=== PATIENT | male | born 1950 | race Caucasian/White ===

== ENCOUNTER 2017-01-07 19:47 | Inpatient (IN) | payer MEDICARE ==
[~2017-01-07] VITALS: Ht 175.3 cm; Wt 112.3 kg
[2017-01-07] VITALS (7 sets, daily range): BP systolic 124–153; BP diastolic 67–115; PULSE 87–122; RESP 16–24; O2SAT 94–99
[~2017-01-07 19:47] MED LIST: ASPI-973 PO; ATOR40TA69 PO; CITA40TA13 PO; DILT30TA30 PO; DOXA1TAB PO; FUR20 PO; GARL1CAP7 PO; LEVA15HF5 IH; LOSA50TA3 PO; MULT-1018 PO; OMEG300C3 PO; OXYM30SP18 NS; WARF5TAB7 PO; WARF7.5T4 PO
[2017-01-07 20:08] LABS: BASOPHILS % (AUTO) 0.4 % (0-3); EOSINOPHILS % (AUTO) 1.9 % (0-5); MONOCYTES % (AUTO) 12.1 % (4-12); Mean Corpuscular Hemoglobin 29.7 pg (27.0-35.0); NEUTROPHILS % (AUTO) 66.5 % (40-74); Platelet Count 195 bil/L (150-400)
--- NOTE | 2017-01-07 20:10 | DRSVH ---
PROCEDURE: X-RAY CHEST ONE VIEW, PORTABLE ([id number]) INDICATIONS: sob TECHNIQUE: One view of the chest was acquired. COMPARISON: [facility], CR, XR CHEST 2VW, 10/09/2015, 3:03. FINDINGS: Surgical changes and devices: None. Lungs and pleura: No pleural effusions or pneumothorax. Increased pulmonary vascularity is present. Mediastinum: Mediastinal contours appear normal. Heart size is mildly enlarged. Bones and chest wall: No suspicious bony lesions. Overlying soft tissues appear unremarkable. IMPRESSION: Cardiomegaly with increased pulmonary vascularity suggestive of mild edema. Dictated by: Harmony Dorado M.D. on 01/07/2017 at 20:08 Approved by: Harmony Dorado M.D. on 01/07/2017 at 20:08
[2017-01-07 20:44] LABS: TROPONIN T < 0.010 ug/L (0.0-0.011)
[2017-01-07] MEDS ORDERED: Albuterol-Ipratropium 3 mL Inhalation Solution NEB ONE (20:55)
[2017-01-07] MEDS ORDERED: Diltiazem 5 mg/mL 5 mL Inj IVPUSH ONE (20:55)
[2017-01-07] MEDS ORDERED: Diltiazem Inj 125 MG in 0.9% Sodium Chloride 100 ML, Pharmacy To Mix 1 EA IV SCH (20:55)
[2017-01-07 21:04] LABS: INR 1.76 ratio
--- NOTE | 2017-01-07 21:12 | ED.REPORT ---
HPI-Chest Pain 40 and Over Date of Service Jan 07, 2017 ED Provider: Eric Rock DO The patient is a 66 year old male w/ a hx of chronic a-fib on warfarin, CHF, and COPD who presents to the ED due to hematochezia since yesterday. He has had 5 or 6 episodes of bright red bowel movements. Associated symptoms include SOB, tachycardia and LE edema. He has a GI bleed that was diagnosed outpatient and is to see endoscopy in a few days. He denies fever, vomiting and diarrhea. Nursing Notes Stated Complaint: HEART PROBLEMS,DIFFICULTY BREATHING Chief Complaint: Respiratory Distress Nursing Notes Reviewed: Yes Allergies: Coded Allergies: No Known Allergies (Unverified , 10/09/15) Scheduled Aspirin (Aspirin) 81 Mg Tablet 81 MG PO DAILY Atorvastatin Calcium (Atorvastatin Calcium) 40 Mg Tablet 40 MG PO HS Citalopram (Citalopram) 40 Mg Tablet 40 MG PO DAILY Diltiazem (Cardizem) 30 Mg Tablet 30 MG PO Q8 Doxazosin (Cardura) 1 Mg Tablet 1 MG PO HS Furosemide (Furosemide) 20 Mg Tab 20 MG PO DAILY Garlic (Garlic) 1 Each Capsule 1 EACH PO HS Losartan Potassium (Cozaar) 50 Mg Tablet 50 MG PO DAILY Multivitamin (Multi Vitamin Daily) 1 Each Tablet 1 EACH PO DAILY [place]-3 Fatty Acids (Fish Oil) 300 Mg Capsule 300 MG PO HS Warfarin Sodium (Warfarin Sodium) 5 Mg Tablet 5 MG PO DAILY Take 5mg Mon, , Wed, Sun, Sat, Sun Warfarin Sodium (Warfarin Sodium) 7.5 Mg Tablet 7.5 MG PO DAILY Take 7.5mg on Scheduled PRN Levalbuterol Tartrate (Xopenex Hfa) 15 Gm Hfa.aer.ad 1 PUFF IH Q4 PRN PRN For Wheezing Oxymetazoline HCl (Nasal [place] Sinus) 30 Ml [place] 30 ML NS BID PRN PRN For Congestion General Time Seen by MD: 20:37 Chief Complaint Other (hematochezia) Hx Obtained From: Patient Arrived By: Walk-in Sudden in Onset?: Yes Onset Occurred: Yesterday Symptom Duration: Since onset Past Medical History Past Medical History Notes: Cardiology: [place] Admit October 2015 shortness of breath, diagnosed with atrial fibrillation, stress test suggestive prior RI, cardiac catheterization was planned but deferred initially secondary to thrombus and atrial appendage, the second time deferred due to elevated INR, and then deferred a third time following communication issue regarding scheduling, and then reportedly lost to follow-up Past Medical History COPD Hx pneumonia Bronchitis CVA 2002 Hypertension Gastric ulcer Smoking History Former Smoker Social History Alcohol Use: "Social" Drug Use: Denies drug use Other Social History: Local resident Ambulatory Status Independent Review of Systems Constitutional: Denies: Fever Respiratory: Reports: Shortness of breath GI: Reports: Bloody/tarry stool, Hematochezia, Denies: Diarrhea, Vomiting Musculoskeletal: Reports: Extremity swelling (LE edema) Complete sys rev & neg: except as marked. Physical Exam Initial Vital Signs Vital Signs (First) Date Time Temp Pulse Resp B/P Pulse Ox O2 Delivery O2 Flow Rate FiO2 01/07/17 19:51 36.4 122 16 142/115 99 Room Air Initial VS: Reviewed Head / Eyes: Atraumatic, Normocephalic, PERRL ENT: Mucous membranes moist Back: No CVA tenderness General/Constitutional: Awake, Alert Distress / Hydration: Positive: Distress mild Appearance / Presentation: Positive: Obese, morbidly Wheezing / Retractions: Positive: Wheezing mild pursed lip breathing distant breath sounds Heart Rate / Rhythm: Positive: Irreg irregular rhythm, Tachycardia Lower Ext Edema: Positive: Bilateral 1+, Pitting pulse defecit Abdomen: Atraumatic, Soft, Non-tender Neck Vascular: Positive: JVD mild Skin: Warm, Dry well perfused Interpretation & Diagnostics Lab Results Interpretation Result Diagram: 01/07/17195601/07/171956 Test 01/07/17 19:48 01/07/17 19:57 Urine Color Yellow (YELLOW) Urine Appearance Hazy (CLEAR,HAZY) Urine pH 5.5 (5.0-8.0) Urine Specific [place] 1.025 (1.003-1.035) Urine Protein 30mg/dL (NEG,TRACE) Urine Glucose (UA) Negativemg/dL (NEGATIVE) Urine Ketones Negativemg/dL (NEGATIVE) Urine Occult Blood Trace (NEGATIVE) Urine Nitrite Negative (NEGATIVE) Urine Bilirubin Negative (NEGATIVE) Urine Urobilinogen Normalmg/dL (NORMAL) Urine Leukocyte Esterase Negative (NEGATIVE) Urine RBC 0-2/hpf (0-2) Urine WBC 0-5/hpf (0-5) Urine Epithelial Cells Occasional/hpf (NONE-MOD) Urine Crystals Oxalic acid crystals (NONE Urine Bacteria Few/hpf (NONE-FEW) Urine Hyaline Casts None/lpf (NONE) Urine Granular Casts None seen (NONE SEEN) Urine Waxy Casts None seen (NONE SEEN) Urine Red Blood Cell Casts None seen (NONE SEEN) Urine White Blood Cell Casts None seen (NONE SEEN) Urine Mucus Present (None Seen) Urine Trichomonas None seen (NONE SEEN) Urine Yeast None (NONE SEEN) Urinalysis Comment Urine Culture Reflexed Not indicated White Blood Count 6.7th/mm3 (3.8-10.1) Red Blood Count 4.27mil/mm3 (4.40-5.80) Mean Corpuscular Volume 92.0fL (81-100) Mean Corpuscular Hemoglobin 29.7pg (27.0-35.0) Mean Corpuscular Hemoglobin Concent 32.3% (32.0-37.0) Red Cell Distribution Width 14.1% (12.3-15.4) Platelet Count 195bil/L (150-400) Neutrophils (%) (Auto) 66.5% (40-74) Lymphocytes (%) (Auto) 18.5% (14-46) Monocytes (%) (Auto) 12.1% (4-12) Eosinophils (%) (Auto) 1.9% (0-5) Basophils (%) (Auto) 0.4% (0-3) Prothrombin Time 19.1sec (8.1-12.5) Prothromb Time International Ratio 1.76ratio Sodium Level 139mEq/L (134-144) Potassium Level 4.3mEq/L (3.5-5.2) Chloride Level 101mEq/L (97-108) Carbon Dioxide Level 24mmol/L (18-29) Blood Urea Nitrogen 27mg/dL (8-27) Creatinine 1.02mg/dL (0.76-1.27) Estimat Glomerular Filtration Rate 78mL/min (>59) Glucose Level 130mg/dL (60-99) Calcium Level 9.7mg/dL (8.5-10.1) Total Bilirubin 0.5mg/dL (0.0-1.2) Aspartate Amino Transf (AST/SGOT) 27U/L (0-50) Alanine Aminotransferase (ALT/SGPT) 29U/L (0-44) Alkaline Phosphatase 72U/L (25-160) Troponin T < 0.010ug/L (0.0-0.011) Pro-B-Type Natriuretic Peptide 2393pg/mL (0-376) Total Protein 7.4g/dL (6.4-8.4) Albumin 4.3g/dL (3.4-5.0) Hold Weiss Top Tube Received (Received) ECG Interpretation Time: 19:53 Interpreted by: ED physician Rhythm / Conduction: Atrial fib with RVR (rate 114) X-Ray Chest Interpretation Chest Xray Interpretation: IMPRESSION: Cardiomegaly with increased pulmonary vascularity suggestive of mild edema. Dictated by: Harmony Dorado M.D. on 01/07/2017 at 20:08 Approved by: Harmony Dorado M.D. on 01/07/2017 at 20:08 View: Portable Interpretation / Wet Read by: Interpret - Radiologist Re-Eval/Medical Decision Med Decision/Clinical Course 66[facility] with atrial fibrillation and rapid ventricular response. He has also had hematochezia for 48 hours. He is found to be tachycardic and have wheezing. He was treated with Cardizem and DuoNeb. Overall he looked well after the treatments. He was hemodynamically stable. His first hemoglobin is reassuring. His INR is 1.7. He will be admitted to the PCU on a Cardizem drip and have serial H&H's and consider gastroenterology consultation. Consultation : Referral / Consult Name: Cris Doe DO Consulted With: Hospitalist Call Returned at: 21:08 Hr Representative: Agrees with eval, Agrees with plan Note: Case discussed. Dr. Doe agrees with plan. Counseled Regarding: Diagnosis, Lab results, Need for admission Discharge & Departure Primary Impression: Atrial fibrillation with rapid ventricular response Additional Impressions: Anticoagulated on warfarin Gastrointestinal bleeding GI bleed type/associated pathology: unspecified gastrointestinal hemorrhage type Qualified Code: K92.2 - Gastrointestinal hemorrhage, unspecified Disposition: ADMITTED TO HOSPITAL Discharge Condition All VS Reviewed: Yes Condition: Stable Referrals: Paul Fitzpatrick MD (PCP) Scribe Attestation Portion of this note were transcribed by Ariana Polanco. IDr. Rock, personally performed the history, physical exam, and medical decision-making: I reviewed and confirmed the accuracy for the information in the transcribed note. Signed by: jael Bang, 01/07/17 0429 copies to: Paul Fitzpatrick MD, Todd P DO Jan 07, 2017 21:12 Ariana Polanco Jan 07, 2017 21:20
[2017-01-07] MEDS ORDERED: LidocaineVisc 2%:Antacid 1:1 10 mL Syringe PO SCH (21:25)
[2017-01-07] MEDS ORDERED: Polyethylene Glycol (PEG) 17 Gm Powder PO PRN (22:05)
[2017-01-07] MEDS ORDERED: Alum-Mag Hydrox-Simeth 30 mL Suspension PO PRN (22:05)
[2017-01-07] MEDS ORDERED: Ondansetron 2 mg/mL 2 mL Inj IVPUSH PRN (22:05)
[2017-01-07] MEDS ORDERED: Senna-Docusate 8.6-50 mg Tablet PO PRN (22:05)
[2017-01-07] MEDS ORDERED: Diltiazem Inj 125 MG in Dextrose 5% 100 ML IV SCH (22:10)
[2017-01-07] MEDS ORDERED: Furosemide 10 mg/mL 4 mL Inj IVPUSH ONE (22:15)
--- NOTE | 2017-01-07 22:27 | PCM.HPMED ---
Subjective Date of Service Jan 07, 2017 Primary Provider: Admitting Physician: Cris Doe DO Primary Care Physician: Paul Fitzpatrick MD Attending Physician: Cris Doe DO Admit Status: From the Emergency Department Chief Complaint: SOB, Gi bleed History of Present Illness: The patient is a 66 year old male w/ a hx of chronic a-fib on warfarin, CHF w/ LVEF 45%, history of left atrial appendage thrombus, history CVA, and COPD who presents to the ED due to hematochezia x 1.5 days. He has had 5 or 6 episodes of bright red blood with BMs. It is red when he wipes and it can also be painful. Associated symptoms include SOB, tachycardia, and LE edema. He has a GI bleed that was diagnosed outpatient and is to see endoscopy in a few days. He denies fever, vomiting, abdominal pain, [place], dizziness, or diarrhea. He reports he has had prior episodes of blood in his stool, but that was over 6 months ago. Thinks he may have hemorrhoids previously. Denies any chronic NSAID usage. Reports he has quit alcohol and tobacco for 1.5 years. Also reports he has also been progressively SOB in the last few weeks. He has noticed a 10lb weight gain and reports his abdomen has been more distended and tight lately. He states it makes it hard for him to breath when laying down flat. He also reports starting Levalbuterol nebulizer recently and that has worsened his SOB and has also increased his HR. He take his own vitals frequently at home and notes that his HR has been regularly in the 110s-130s, especially after using the Levalbuterol nebulizer. Reports he was previously on Spiriva. Denies any recent sickness, chest pain, cough, or wheezing. Reports he has been compliant with his medication regimen otherwise. In the ED he was tachycardic with a pulse of 122, he was afebrile, blood pressure 142/115, saturating at 99% on room air. He was given 10 mg of diltiazem IV, which did not improve his heart rate so he was placed on diltiazem drip. His hematocrit was 39.3 on admission, and repeat 2 hours later was 37.7. He was typed and crossed. CMP was unremarkable [place]BNP [place] 2393 Review of Systems: complete review of systems neg except as stated in history of present illness Allergies Coded Allergies: No Known Allergies (Unverified , 10/09/15) Home Medications From [facility] Aspirin 81 mg daily Atorvastatin 40 mg daily Citalopram 40 mg daily Cozaar 50 mg daily Doxazosin 1 mg daily Garlic capsule daily Metoprolol succinate 25 mg twice a day Multivitamin daily, [place] 3 daily Warfarin 5 mg as instructed PMH # Chronic atrial fibrillation #Chronic anticoagulation #CAD/ assumed prior inferior AR by perfusion exam. #CVA 2002 #Hypertension #Hyperlipidemia #BPH #History of hepatitis C s/p treatment #Prior history of tobacco abuse #H/o Alcohol abuse Surgical History Denies any surgical history Family History Denies any fmhx of GI cancers. Social History Hx Alcohol Use: Yes Hx Substance Use: No Hx Tobacco Use: Yes Smoking Status: Former Smoker (quit 1.5 years ago) Living Arrangement: with Family Exam Vital Signs Vital Sign - Last Date Time Temp Pulse Resp B/P Pulse Ox O2 Delivery O2 Flow Rate FiO2 01/07/17 21:22 101 21 139/86 94 Room Air 01/07/17 19:51 36.4 Exam Gen: Obese male who appears mildly short of breath while sitting up at 45 degrees. Speaking full sentences HEENT: NC/AT, PERRLA, EOMI, Oropharynx pink and moist, no dentition. Neck: Soft, trachea midline. No JVD appreciated CV: Irregularly irregular with soft systolic murmur, pulses intact and equal bilaterally Resp: CTAB, no wheezing or rhonchi noted. Mild increase in resp effort at rest Abd: Soft, Protuberant, non tender, no masses palpated, no fluid wave noted. Hyperactive bowel sounds noted. MSK: Muscle strength grossly intact and equal, no swollen or tender joints. No clubbing or cyanosis noted. 1+ pitting edema from feet up to both knees bilaterally. Neuro: Grossly intact, no focal weakness, Alert and Oriented x3. Skin: Warm, dry, intact Psych: Appropriate mood and affect, linear though process. Lab and Diagnostics Result Diagram: 01/07/17195601/07/171956 X-Rays, CTs and MRIs CXR portable IMPRESSION: Cardiomegaly with increased pulmonary vascularity suggestive of mild edema. 12-lead ECG EKG: Afib/Aflutter with rate of 114, multiple PVCs, with QTc of 518. Assessment & Plan 66 year old male w/ a hx of chronic a-fib on warfarin, CHF w/ LVEF 45%, history of left atrial appendage thrombus, history CVA, and COPD who presents to the ED due to hematochezia x 1.5 days and SOB x 2 weeks. He is admitted for evaluation of his hematochezia and treatment of his dyspnea. #Hematochezia, Present on Admission Patient reports prior episodes, but that was over 6 months ago was not as severe as this episode. Denies any current NSAID or alcohol usage besides his baby aspirin. Reports a history of hemorrhoids Typed and cross Serial H&H to monitor Consider CT scan if patient develops abdominal pain Pantoprazole IV 40 mg twice a day Consider GI consult in the a.m. #Dyspnea, Present on Admission Likely multifactorial, complicated by acute decompensated CHF, A. fib with RVR and COPD. No signs or symptoms of infection Further management as below Medication reconciliation to be performed in the a.m. #Acute Decompensated systolic CHF, POA Patient's dyspnea, increased peripheral edema, and increased abdominal girth likely due to decompensated heart failure. Patient was noted to be 101.2 kg on discharge in June 2016 Will obtain abdominal ultrasound to investigate the increased abdominal girth and possible need for paracentesis IV Lasix 40 mg twice a day Strict I's and O's, placed on telemetry for CV monitoring #Atrial Fibrillation w RVR, POA Patient is chronically in atrial fibrillation/atrial flutter. Placed on diltiazem drip Cardiology consultation to be placed in the a.m. Holding warfarin secondary to GI bleed #COPD, POA Currently stable without wheezing on exam. Will continue with Duoneb scheduled. Will hold Xopenex HFA due to report of this causing tachycardia. Keep Sats between 88-92% #H/o Left Atrial Appendage Thrombus, POA Will hold Warfarin secondary to GI bleed #HTN, POA Continue Cozaar #BPH, POA Continue doxazosin #Likely obstructive sleep apnea, POA Patient reports he has not been using his CPAP due to discomfort #BMI 37.2 Tylenol prn pain Zofran prn nausea bowel regimen prn constipation CODE STATUS: Full resuscitation Disposition: Patient is admitted under inpatient status with expected length of stay greater than 2 midnights due to risk of adverse effects, medical complexity , and decompensation. Pain Evaluation: Adequate Pain Control VTE Prophylaxis Indicated: Contraindicated (GI bleed.) VTE Prophylaxis: SCDs Resuscitation Status: CPR: Attempt Resuscitation Attending Statement The patient was seen and examined together with house staff on 01/07/2017 and I agree with the history, exam and plan as outlined in the note above. Stephen Sierra DO Jan 07, 2017 22:27 Cris Doe DO January 08, 2017 03:44
[2017-01-07] MEDS: Sodium Chloride LOK Flush 10 mL Syringe IVFLUSH SCH (22:44)
[2017-01-07] MEDS: Pantoprazole 4 mg/mL 10 mL Inj IVPUSH SCH (22:47)
[2017-01-07 22:57] LABS: APPEARANCE,URINE HAZY (CLEAR,HAZY); COLOR,URINE YELLOW (YELLOW); PH,URINE 5.5 (5.0-8.0)
[2017-01-07 22:58] LABS: OCCULT BLOOD,URINE TRACE (NEGATIVE); UROBILINOGEN,URINE NORMAL (NORMAL)
[2017-01-07] MEDS ORDERED: DOXY25TA44 PO (23:19)
--- NOTE | 2017-01-07 23:26 | NUR ---
Admit Patient admitted to room 2019. He is able to self transfer to bed but is very short of breath and tachypnic with activity. Spo2 remains in the 90s on RA with activity. Patient states he has a history or ALVIN but declines CPAP. Continuous pulse ox in place. Cardizem gtt infusing at 5mg/hr and is increased to 10mg/hr to keep HR < 100. Patient oriented to room and call light. Updated on plan of care for the night. Med rec filled out with patient's pill box. Patient agrees to keep it in the closet for tonight and have his bring it home tomorrow. SCDs placed. Urine sample sent to lab. Patient denies further needs.
[2017-01-08] VITALS (11 sets, daily range): BP systolic 120–138; BP diastolic 68–84; PULSE 50–123; RESP 18–24; O2SAT 93–96
[2017-01-08 04:25] LABS: BASOPHILS % (AUTO) 0.4 % (0-3); EOSINOPHILS % (AUTO) 1.8 % (0-5); MONOCYTES % (AUTO) 12.8 % (4-12); Mean Corpuscular Hemoglobin 29.9 pg (27.0-35.0); Mean Corpuscular Volume 93.7 fL (81-100); NEUTROPHILS % (AUTO) 70.1 % (40-74); Platelet Count 221 bil/L (150-400)
--- NOTE | 2017-01-08 05:56 | NUR ---
BM Patient has two brown BMs with red blood. H&H stable.
[2017-01-08] MEDS: Albuterol-Ipratropium 3 mL Inhalation Solution NEB SCH ×2 (07:26→11:41)
[2017-01-08] MEDS ORDERED: Furosemide 10 mg/mL 4 mL Inj IVPUSH SCH (08:30)
[2017-01-08] MEDS: Pantoprazole 4 mg/mL 10 mL Inj IVPUSH SCH ×2 (08:36→16:09)
[2017-01-08] MEDS: Sodium Chloride LOK Flush 10 mL Syringe IVFLUSH SCH ×2 (08:37→16:09)
--- NOTE | 2017-01-08 09:27 | DRSVH ---
PROCEDURE: US ABDOMEN INDICATIONS: rapid increasing abd girth TECHNIQUE: Real-time scanning was performed of the abdominal and retroperitoneal organs, with image documentatio n. COMPARISON: [facility], US, ABDOMEN SONOGRAM, 08/12/2009, 9:25. FINDINGS: Liver length: Enlarged at 21.42 cm Gallbladder Wall Thickness: 2.40 mm CHD: Not seen due to hyperechoic liver echotexture and overlying bowel gas. CBD: Not seen due to hyperechoic liver echotexture and overlying bowel gas. Spleen length: 13.87 cm Right kidney length: 12.97 cm Left kidney length: 11.60 cm Aorta(Proximal): Not well-seen due to bowel gas. Aorta(Mid): Obscured by bowel gas. Aorta(Distal): Obscured by bowel gas. RCIA: Not seen. LCIA: Not seen. Liver: Liver is enlarged in size and homogeneous in echotexture, with severe fatty infiltration jay cated by the presence of prominent hyperechoic liver echotexture. Gallbladder: The gallbladder appears normal Biliary ducts: Intrahepatic bile ducts are non-dilated. Extrahepatic bile duct caliber is normal. Normal is 6-7 mm or less in diameter, or 10 mm or less post-cholecystectomy. Pancreas: Not seen due to bowel gas. Spleen: Spleen is mildly enlarged in size at 13.9 cm craniocaudad, and homogeneous in echotexture. Kidneys: Kidneys are normal in size and echotexture. No hydronephrosis or nephrolithiasis. No vipul d masses. Aorta: The aorta is not seen due to bowel gas. [place]: Not seen due to bowel gas. IVC: Intrahepatic inferior vena cava is patent. Miscellaneous: No free abdominal fluid. IMPRESSION: Hepatomegaly, with prominently diffusely fatty infiltrated liver parenchyma. Splenomegal y, but without associated ascites or evidence of varices. As noted above 2 the quality of visualization of significant portions of the abdomen and retroperiton eum was diminished by overlying bowel gas, and the hyperechoic hepatic echotexture. Depending on the clinical status followup by CT scanning may become necessary. Dictated by: Shelton Jimenez M.D. on 01/08/2017 at 9:22 Approved by: Shelton Jimenez M.D. on 01/08/2017 at 9:25
--- NOTE | 2017-01-08 12:22 | NUR ---
Social Work Note - Initial Assessment: D/A: See Initial Assessment. The Pt is a 66 y/o male that was admitted for AFIB with RVR, GI bleed. The Pt's PCP is MD Paul Fitzpatrick and his insurance is [facility] [place] Medicare. EMR reviewed. MANGO met with the Pt to explain role and discuss discharge planning. SW telephone number written on board. The Pt reports that he lives independently in [place] with his family. He continues to drive, does not use any DME, and has no HH/SNF history. The Pt does not have an Advanced Directive on file, reported that he is working on the paperwork at home. Paperwork requested when it becomes available. The Pt is being following by Cardiology, GI, and RT. See notes. The Pt denies any needs at this time, SW will continue to follow for discharge needs. P: The Pt is not medically stable for discharge. The Pt denies any needs at this time, SW will continue to follow for discharge needs. TACOS [employer] Addendum: 01/08/17 at 1228 by ORLANDO BANERJEE SS Amended: Links added.
[2017-01-08] MEDS ORDERED: ATEN25TA PO (12:26)
[2017-01-08] MEDS ORDERED: LEVA1.2515 NEB (12:26)
[2017-01-08] MEDS ORDERED: WARF5TAB9 PO ×2 (12:26)
--- NOTE | 2017-01-08 13:38 | CONS ---
[address] [address] CARDIOLOGY INPATIENT CONSULTATION REPORT PATIENT: BELEN TURNER : 1950 MR#: [id number] ADMIT: 01/07/2017 JOB ID: [id number] DATE OF SERVICE:01/08/2017 This is a very pleasant, 66-year-old gentleman with history of chronic atrial fibrillation, anticoagulated on warfarin, cardiomyopathy, likely multifactorial (alcohol, hypertension and tachycardia mediated), with ejection fraction 45% per echo from July 04, 2016, h/o left atrial appendage thrombus per [facility] from 10/15/2105, history of COPD, alcohol abuse, hypertension, hyperlipidemia, possible coronary artery disease per myocardial perfusion study from November 2015, history of hepatitis C, status post treatment, history of right posterior cerebellar stroke in 2002. The patient was admitted yesterday, on January 07, 2017, with hematochezia. The patient tells me that the last three-four days or so, he noted bright blood in his stool and he has been having loose bowel movements, five, six times a day. He denies having similar episodes in the past, stating that in the past, sometimes he might have some small blood on the paper after wiping up. He tells me that he possibly has hemorrhoids. He actually was scheduled for colonoscopy outpatient, regular, recently, but he nebet had it because he was admitted to hospital and is going to have GI consult and colonoscopy here. The patient has also chronic dyspnea on exertion which he tells me that last month or so got worse, especially last week. He tells me that he gets short of breath on short distances. He denies having any chest discomfort. Interestingly, he tells me that at night he uses only one pillow and feels comfortable with that, and he denies any paroxysmal nocturnal dyspnea. He has obstructive sleep apnea and had a CPAP machine which he never used because he could not tolerate it. He has chronic COPD and chronic cough. He tells me that he has a chronic cough with mucus since September 2014, when he had pneumonia. He used to be on inhaler, albuterol and Spiriva, which did not work for him, and about two weeks ago, he was started on levalbuterol nebulizer. The patient tells me that he periodically gets severe bouts of cough and he used to get presyncopal and syncopal episodes with those bouts of cough. He tells me that last syncopal episode which he had associated with a bout of cough was seven, eight months ago. During two or three years, he had up to maybe 8-10 times of syncopal episodes, all associated with cough bouts. He never went to ER because , "I gained consciousness and I was fine." As noted above, he has chronic atrial fibrillation with heart rate difficult to control. He tells me that since he started levalbuterol two weeks ago, he noticed also increased heart rate. At home, his heart rate has been running up to 130 beats per minute. He is on diltiazem 30 mg three times a day. Also, he tells me that he has atenolol 25 mg left over medication he used to take before, and in the morning, sometimes he may take one dose of atenolol in addition to diltiazem when his heart rate is high. He tells me that he tolerates atenolol very well and it does not exacerbate his cough. It should be noted that per previous medical records from his admission in September 2015, it was noted that the patient occasionally had fairly significant pauses of 3-4 seconds on occasion and it was thought it was predominantly vagal-mediated, related either to snoring or excessive coughing, and he was asymptomatic back to the time. The patient tells me that also last month or so, he gained weight and it looks like his belly is more distended. He states that he has been having good appetite and he has been eating a lot. He has a severe smoking history but states that he quit in 2014 and before that he used to smoke 1 to 1-1/2 packs a day. He still drinks alcohol (bourbon), six, seven shots, he tells me every other day. He is not sure about family history of coronary artery disease. On this admission, he was hypertensive with blood pressure 142/115, and with heart rate 122 and he was in atrial fibrillation. He was afebrile and his saturation on room air was 99%. Labs showed slight anemia with hemoglobin 12.4 and hematocrit 38.9. He had normal kidney function and electrolytes and normal troponins. Chest x-ray showed increased pulmonary vascularity suggestive of mild edema. His INR was subtherapeutic, 1.76. HOME MEDICATIONS: His home medications include: 1. Furosemide 20 mg one tablet daily. 2. Baby aspirin 81 mg daily. 3. He is on warfarin, anticoagulated. 4. Citalopram 40 mg tablet daily. 5. He is also on losartan 50 mg twice a day. 6. He is on diltiazem 30 mg one tablet every 8 hours. 7. Doxazosin 1 mg one tablet in the evening. 8. He is also on atorvastatin 40 mg daily. 9. As I noted, he is on a nebulizer, levalbuterol 1.25 mg. 10. As I noted above, he also has left over atenolol 25 mg tablets, which he used before and he periodically uses one tablet daily when he has high heart rate. ROS: 12 point of ROS is negative except the ones mentioned in HPI. PAST MEDICAL HISTORY: 1. Chronic atrial fibrillation. 2. Chronic anticoagulation. 3. Coronary artery disease possible per myocardial profusion study from November 2015, which showed old inferior wall GA. 4. CVA from 2002. 5. Hypertension. 6. Hyperlipidemia. 7. BPH. 8. History of hepatitis C, status post treatment. 9. Prior history of tobacco abuse. 10. History of alcohol abuse. Family history He is not sure about family history of coronary artery disease. SOCIAL HISTORY: He has alcohol dependence and drinks 5-6 shots of bourbon every other day. Tobacco use: He has a severe smoking history. Quit in 2014, and before that he used to smoke 1 to 1-1/2 packs a day. Denies recreational drug use. EXAMINATION: Vital signs: Temperature 36.6, pulse 86 beats per minute, respiration 22, blood pressure 124/71, Saturation room air 94%. General:Overweight male, lying in the bed comfortably, speaking full sentences, no acute distress. HEENT: Mucous membranes moist. Sclerae anicteric. Neck supple, no thyromegaly. Respiratory: Decreased breathing sounds bilaterally, no wheezing. No crackles. Cardiac: Irregularly irregular rhythm. Heart tones distant, no murmur appreciated, JVP slightly elevated, about 8 cm. Abdomen: Nontender with palpation, distended. Extremities: No lower extremity edema. Skin: Warm, no rash. Neuro: Alert and oriented x3. No gross abnormalities noted. EKG: On telemetry, he is in atrial fibrillation. Rate not well controlled. It is between 70s, 80s, and periodically going in 120s and 130s beats per minute when he moves around. Periodically, he has PVCs. LABS: RBC 4.15, Hgb 12.4, Hct 38.9, PLT 221, WBC 7.8 Na 139, K 4.2, Cl 98, CA2 24, BUN 26, Cr 1.1, Glu 122, Ca 8.9, Mg 2.0, Trig 210, Chol 129, LDL 50, HDL 37, TSH 4.08 ASSESSMENT AND PLAN: This is a 66-year-old gentleman with history of chronic atrial fibrillation, anticoagulated on warfarin, cardiomyopathy, likely multifactorial (alcohol, hypertension and tachycardia mediated), with ejection fraction 45% per echo from July 04, 2016, h/o left atrial appendage thrombus per [facility] from 10/15/2015, history of COPD, alcohol abuse, hypertension, hyperlipidemia, possible coronary artery disease per myocardial perfusion study from November 2015, history of hepatitis C (status post treatment), history of right posterior cerebellar stroke in 2002, who on 01/07/2017 was admitted with hematochezia which is still present and also with increased shortness of breath and with atrial fibrillation with RVR. has been on diltiazem drip. heart rate still not well controlled. 1. Atrial fibrillation with rapid ventricular response. He is currently on diltiazem drip. I would recommend to switch him on metoprolol succinate 50 mg b.i.d. I think he will tolerate it well, taking in mind that he has been taking atenolol at home and tolerating it well. On telemetry, his heart rate is not well controlled. He does not have pauses currently, although in the past, he had history of pauses, up to 3-4 seconds (I am talking about in 2016), and it was considered that it was vagal-mediated, related either to snoring or excessive coughing. 2. Cardiomyopathy. Etiology multifactorial likely alcohol, hypertension, and tachycardia mediated, with ejection fraction 45% per echo from 07/04/2016. His CLOUD could be secondary to A-fib wth RVR He actually does not have significant signs of volume overload currently. 3. Obstructive sleep apnea, not treated. Could not tolerate CPAP in the past 4. History of thrombus in left atrial appendage per [facility] from October 15, 2015. 6. Hypertension, currently controlled. 7. Hyperlipidemia. 3. Chronic obstructive pulmonary disease. He has been stable. He has been saturating well on room air. 8. Alcohol abuse. Recommenadtions: #Would recommend to stop Diltiazem iv and switch him to metoprolol succinate 50 mg b.i.d. and up-titrate as tolerated depending on HR. # Would keep him on his outpatient dose of furosemide 20 mg p.o. daily. #Also I would keep him on outpatient dose of losartan 50 mg b.i.d. # Once his HR is well control, would recommend to do ECHO. He has ongoing hematochezia and he is not anticoagulated currently. The patient is going to have a GI consult in-house. The case and management was discussed and coordinated with Adjunct Instructor Chemistry Dr. Quiroz. CATIA
[2017-01-08] MEDS ORDERED: Diltiazem CD 180 mg ER24 Capsule PO SCH (13:50)
--- NOTE | 2017-01-08 14:07 | PCM.CHPMED ---
Subjective Date of Service: January 08, 2017 Primary Physician: Admitting Physician: Cris Doe DO Primary Care Physician: Paul Fitzpatrick MD Attending Physician: Cris Doe DO Chief Complaint: Chief Complaint: Hematochezia History of Present Illness: 66-year-old gentleman with history of chronic A. fib on warfarin, CHF, COPD, history of CVA, fatty liver disease and past history of GI bleed and hemorrhoids who presented to the ED due to 2 days of moderate hematochezia. Patient states that a few days ago he began having increased bowel movements that he believes for diarrhea on and abuse unable to definitively confirm that. Patient states he was wiping excessively and 4 longer duration of time and developed hematochezia, initially showing up on the tissue paper but then began to fill the bowl. He was drinking large amounts of alcohol when this all began. He states that he now has rectal pain but without abdominal pain. Patient does state that he had mild nausea but no vomiting that seemed to be transient along with mild epigastric pain. Patient states that his abdomen is also expanding over the last month or so, denies ever undergoing paracentesis; ultrasound on presentation revealed fatty liver disease. Patient is on warfarin due to his A. fib which is currently being worked up by cardiology as his pulse was 122 on admit. Today the patient states that his bloody stool has resolved and he is having more performed stool, along with cessation of rectal abdominal pain. Patient's H&H has been stable since admission as well as negative liver enzymes. Today patient does describe recent symptoms of orthopnea is consistent with a CHF, and is undergoing cardiac evaluation. Warfarin was held on admission, although he was subtherapeutic. Patient denies chest pain, dizziness, lightheadedness, ongoing hematochezia/melena, nausea, vomiting, shortness of breath or abdominal pain. Patient states that recently he was diagnosed with a GI bleed does not outpatient with scheduled colonoscopy within the next week to 2. [facility] indicates referral at the beginning of last month but no clinic note. Also patient was treated for hep C in the past but last clinic note from 2010 indicated that he would have to follow up in 6 months but does not appear to have happened. Current hep C status I guess is unknown at this point. Review of Systems: See history of present illness PMH Past Medical History Chronic A. fib Chronic anticoagulation CAD with silent inferior ME by perfusion study CVA in 2002 Hypertension Hyperlipidemia BPH History of genotype IA chronic hepatitis C s/p treated Prior history of tobacco Recent Alcohol abuse Hx Any Other Health Problems?: YesHx Diabetes: NoBedside Blood Glucose: 146 Surgical History None Home Medications Aspirin 81 mg daily Atorvastatin 40 mg daily Citalopram 40 mg daily Cozaar 50 mg daily Doxazosin 1 mg daily Garlic capsule daily Metoprolol succinate 25 mg twice a day Multivitamin daily, [place] 3 daily Warfarin 5 mg as instructed Allergies: Coded Allergies: No Known Allergies (Unverified , 10/09/15) Family History Family History Denies any history of GI bleeds or colon cancer Social History Hx Alcohol Use: YesHx Substance Use: NoHx Tobacco Use: Yes Smoking Status: Former Smoker Living Arrangement: with Family Exam Vital Signs Vital Sign - Last Date Time Temp Pulse Resp B/P Pulse Ox O2 Delivery O2 Flow Rate FiO2 01/08/17 09:13 77 01/08/17 08:00 36.6 22 124/77 94 Room Air Intake and Output 01/07/17 01/07/17 01/08/17 Cumulative From/Thru 15:00 23:00 07:00 01/07/17 19:51 - 01/08/17 05:54 Intake Total 812 ml 812 ml Output Total 2450 ml 2450 ml Balance -1638 ml -1638 ml Intake Oral 700 ml 700 ml IV Total 112 ml 112 ml Output Urine Total 2450 ml 2450 ml # Bowel Movements 2 2 Additional Information: Gen.: Patient awake and alert, talkative, no acute distress HEENT: Oropharynx clear, membranes moist, neck supple Radial: Regular rate Respiratory: Coarse breath sounds throughout Abdomen: Distended and mildly tense; clear hepato-megaly with margins approximately 5-6 cm below the rib cage although this difficult to palpate due to the distention; no caput medusa or spider angiomas Extremity: No edema noted's presently Psych: Appropriate mood and affect Neuro: Sensation intact Lab and Diagnostics Result Diagram: 01/08/17 0350 01/08/17 0350 X-Rays, CTs and MRIs CT abdomen IMPRESSION: Hepatomegaly, with prominently diffusely fatty infiltrated liver parenchyma. Splenomegaly, but without associated ascites or evidence of varices. As noted above 2 the quality of visualization of significant portions of the abdomen and retroperitoneum was diminished by overlying bowel gas, and the hyperechoic hepatic echotexture. Depending on the clinical status followup by CT scanning may become necessary. Dictated by: Shelton Jimenez M.D. on 01/08/2017 at 9:22 Assessment & Plan Assessment 66 show male with alcohol abuse and history of hepatitis C who presents with hematochezia and noticeable hepatomegaly. Patient denies nausea or vomiting or history of variceal upper GI bleed. Patient does attest to having prior history of hemorrhoids although denies of spinal lost 5-10 years. As this patient states that the hematochezia started after numerous bowel movements that required high amounts of straining, and as he denies ongoing hematochezia now, it is likely that this resulted from hemorrhoids. Problem list: Acute Atrial fibrillation Acute on chronic CHF GI Bleed/hematochezia Hepatic steatosis Hypertriglyceridemia Plan: Pt's bleeding is likely related to his history of hemorrhoids as he is having rectal pain and bright red blood. He is already scheduled for an appointment for endoscopy as an outpatient. Recommend continuing patient on PPI and holding the warfarin. AFP to be checked in am if positive pt will need follow-up CT of the abdomen. This can be accomplished as an outpatient. Recommend hepatitis C viral load to ensure that the patient is free of disease as there is no follow- up notes in [facility]. Otherwise patient is able to discharge if his H&H remain stable and with the plan for him to see Dr. Bennett as an outpatient for already scheduled colonoscopy. I saw and examined this pt with Dr Anaya and agree with above. Thank you for allowing us to participate in the care of this patient. Problems: Pain Evaluation: Adequate Pain Control VTE Prophylaxis Indicated: Contraindicated (GI bleed.) VTE Prophylaxis: SCDs VTE Mechanical Devices: Intermittant Pneumatic CD Resuscitation Status: CPR: Attempt Resuscitation Eddie Beard DO January 08, 2017 11:05 Marquis Ness MD January 11, 2017 07:46
[2017-01-08 14:32] LABS: INR 1.43 ratio
--- NOTE | 2017-01-08 14:55 | PCM.PNMED ---
Subjective Date of Service January 08, 2017 Subjective Patient is a 66 year old male w/ a history of chronic a-fib on warfarin, CHF w/ LVEF 45%, history of left atrial appendage thrombus, CVA, and COPD who presented to the ED with the complaint of hematochezia for the past two days. Admitted for further evaluation and management of hematochezia and possible COPD exacerbation. Hospital day #1. Hemodynamically stable overnight but noted to be in Afib w/RVR and started on a diltiazem drip. Per nursing, patient had two BMs with bright red blood noted. H/ H stable and no signs/symptoms of active bleeding. This morning patient reports rapid heart rate for several days leading up to this admission as well as worsening shortness of breath. He denies chest pain, dizziness, fever, chills, nausea, vomiting or repeat episode of hematochezia since last night. Of note, he states that he does not always take his diltiazem, which is three times daily , because he forgets. Exam Vital Signs Vital Sign - Last Date Time Temp Pulse Resp B/P Pulse Ox O2 Delivery O2 Flow Rate FiO2 01/08/17 09:13 77 01/08/17 08:00 36.6 22 124/77 94 Room Air Intake and Output 01/07/17 01/07/17 01/08/17 Cumulative From/Thru 15:00 23:00 07:00 01/07/17 19:51 - 01/08/17 05:54 Intake Total 812 ml 812 ml Output Total 2450 ml 2450 ml Balance -1638 ml -1638 ml Intake Oral 700 ml 700 ml IV Total 112 ml 112 ml Output Urine Total 2450 ml 2450 ml # Bowel Movements 2 2 Exam General: Well developed, obese male sitting upright in bed, in no acute distress. HEENT: Normocephalic, atraumatic. PERRLA, no scleral icterus, oropharynx pink with moist mucosa. Neck: Supple with full range of motion. No jugular venous distension appreciated. No lymphadenopathy or thyromegaly. Cardiovascular: Irregularly irregular, no murmurs, rubs, or gallops appreciated , pulses intact and equal bilaterally Pulmonary: Clear to auscultation bilaterally with no crackles, wheezes, or rhonchi. Mild increase in respiratory effort with no use of accessory muscles. Abdomen: Bowel tones present. Soft, obese, mildly distended, nontender with noted hepatomegaly Extremities: No clubbing, cyanosis, edema Neurological: Grossly intact, no focal weakness, Alert and Oriented x3. Psychiatric: Normal mood and affect, appropriately interactive. IVs and Medications Medications Reviewed: Medications were reviewed in detail Lab and Diagnostics Laboratory Tests Test 01/07/17 19:48 01/07/17 19:57 01/07/17 22:45 01/08/17 00:58 Urine Color Yellow (YELLOW) Urine Appearance Hazy (CLEAR,HAZY) Urine pH 5.5 (5.0-8.0) Urine Specific [place] 1.025 (1.003-1.035) Urine Protein 30mg/dL (NEG,TRACE) Urine Glucose (UA) Negativemg/dL (NEGATIVE) Urine Ketones Negativemg/dL (NEGATIVE) Urine Occult Blood Trace (NEGATIVE) Urine Nitrite Negative (NEGATIVE) Urine Bilirubin Negative (NEGATIVE) Urine Urobilinogen Normalmg/dL (NORMAL) Urine Leukocyte Esterase Negative (NEGATIVE) Urine RBC 0-2/hpf (0-2) Urine WBC 0-5/hpf (0-5) Urine Epithelial Cells Occasional/hpf (NONE-MOD) Urine Crystals Oxalic acid crystals (NONE Urine Bacteria Few/hpf (NONE-FEW) Urine Hyaline Casts None/lpf (NONE) Urine Granular Casts None seen (NONE SEEN) Urine Waxy Casts None seen (NONE SEEN) Urine Red Blood Cell Casts None seen (NONE SEEN) Urine White Blood Cell Casts None seen (NONE SEEN) Urine Mucus Present (None Seen) Urine Trichomonas None seen (NONE SEEN) Urine Yeast None (NONE SEEN) Urinalysis Comment Urine Culture Reflexed Not indicated White Blood Count 6.7th/mm3 (3.8-10.1) Red Blood Count 4.27mil/mm3 (4.40-5.80) Hemoglobin 12.7g/dL (13.8-17.2) 12.1g/dL (13.8-17.2) 12.3g/dL (13.8-17.2) Hematocrit 39.3% (41.0-50.0) 37.7% (41.0-50.0) 38.6% (41.0-50.0) Mean Corpuscular Volume 92.0fL (81-100) Mean Corpuscular Hemoglobin 29.7pg (27.0-35.0) Mean Corpuscular Hemoglobin Concent 32.3% (32.0-37.0) Red Cell Distribution Width 14.1% (12.3-15.4) Platelet Count 195bil/L (150-400) Neutrophils (%) (Auto) 66.5% (40-74) Lymphocytes (%) (Auto) 18.5% (14-46) Monocytes (%) (Auto) 12.1% (4-12) Eosinophils (%) (Auto) 1.9% (0-5) Basophils (%) (Auto) 0.4% (0-3) Prothrombin Time 19.1sec (8.1-12.5) Prothromb Time International Ratio 1.76ratio Sodium Level 139mEq/L (134-144) Potassium Level 4.3mEq/L (3.5-5.2) Chloride Level 101mEq/L (97-108) Carbon Dioxide Level 24mmol/L (18-29) Blood Urea Nitrogen 27mg/dL (8-27) Creatinine 1.02mg/dL (0.76-1.27) Estimat Glomerular Filtration Rate 78mL/min (>59) Glucose Level 130mg/dL (60-99) Calcium Level 9.7mg/dL (8.5-10.1) Total Bilirubin 0.5mg/dL (0.0-1.2) Aspartate Amino Transf (AST/SGOT) 27U/L (0-50) Alanine Aminotransferase (ALT/SGPT) 29U/L (0-44) Alkaline Phosphatase 72U/L (25-160) Troponin T < 0.010ug/L (0.0-0.011) Pro-B-Type Natriuretic Peptide 2393pg/mL (0-376) Total Protein 7.4g/dL (6.4-8.4) Albumin 4.3g/dL (3.4-5.0) Hold Weiss Top Tube Received (Received) Test 01/08/17 03:50 01/08/17 14:00 White Blood Count 7.8th/mm3 (3.8-10.1) Red Blood Count 4.15mil/mm3 (4.40-5.80) Hemoglobin 12.4g/dL (13.8-17.2) Hematocrit 38.9% (41.0-50.0) Mean Corpuscular Volume 93.7fL (81-100) Mean Corpuscular Hemoglobin 29.9pg (27.0-35.0) Mean Corpuscular Hemoglobin Concent 31.9% (32.0-37.0) Red Cell Distribution Width 14.2% (12.3-15.4) Platelet Count 221bil/L (150-400) Neutrophils (%) (Auto) 70.1% (40-74) Lymphocytes (%) (Auto) 14.5% (14-46) Monocytes (%) (Auto) 12.8% (4-12) Eosinophils (%) (Auto) 1.8% (0-5) Basophils (%) (Auto) 0.4% (0-3) Sodium Level 139mEq/L (134-144) Potassium Level 4.2mEq/L (3.5-5.2) Chloride Level 98mEq/L (97-108) Carbon Dioxide Level 24mmol/L (18-29) Blood Urea Nitrogen 26mg/dL (8-27) Creatinine 1.10mg/dL (0.76-1.27) Estimat Glomerular Filtration Rate 71mL/min (>59) Glucose Level 122mg/dL (60-99) Calcium Level 8.9mg/dL (8.5-10.1) Magnesium Level 2.0mg/dL (1.6-2.6) Triglycerides Level 210mg/dL (0-149) Cholesterol Level 129mg/dL (100-199) LDL Cholesterol, Calculated 50.000mg/dL (0-99) VLDL Cholesterol 42.000mg/dL HDL Cholesterol 37mg/dL (>39) Cholesterol/HDL Ratio 3.49 (0.0-4.4) Thyroid Stimulating Hormone (TSH) 4.080uIU/mL (0.450-4.500) Result Diagram: 01/08/17 0350 01/08/17 0350 X-Rays, CTs and MRIs PROCEDURE: X-RAY CHEST ONE VIEW, PORTABLE ([id number]) IMPRESSION: Cardiomegaly with increased pulmonary vascularity suggestive of mild edema. Dictated by: Harmony Dorado M.D. on 01/07/2017 at 20:08 Approved by: Harmony Dorado M.D. on 01/07/2017 at 20:08 12-lead ECG EKG: Afib/Aflutter with rate of 114, multiple PVCs, with QTc of 518. Additional Diagnostics PROCEDURE: US ABDOMEN IMPRESSION: Hepatomegaly, with prominently diffusely fatty infiltrated liver parenchyma. Splenomegaly, but without associated ascites or evidence of varices. As noted above 2 the quality of visualization of significant portions of the abdomen and retroperitoneum was diminished by overlying bowel gas, and the hyperechoic hepatic echotexture. Depending on the clinical status followup by CT scanning may become necessary. Dictated by: Shelton Jimenez M.D. on 01/08/2017 at 9:22 Approved by: Shelton Jimenez M.D. on 01/08/2017 at 9:25 Assessment & Plan 66-year-old male with a history of Afib chronically anticoagulated on warfarin, CHF w/ LVEF 45%, history of left atrial appendage thrombus, CVA and COPD admitted for further evaluation and management of hematochezia, possible COPD exacerbation and concern for CHF exacerbation. Hospital day #2. 1. Hematochezia, acute. present on admission. Improved. -Likely secondary to hemorrhoids. -H/H stable and no signs/symptoms of active bleeding -GI consulted, recommend outpatient follow up. Appreciate their time and expertise. 2. Atrial fibrillation w/Rapid ventricular response, chronic. present on admission. Ongoing -Patient is chronically anticoagulated on warfarin, which was held on admission secondary to #1. -Transition to oral diltiazem ER, 180mg daily and discontinue diltiazem drip. -Resume warfarin w/dosing per pharmacy, as there are no signs/symptoms of active bleeding. -Continue telemetry. 3. COPD, chronic. present on admission. Ongoing -Patient does not appear to be in acute exacerbation but not well controlled on current outpatient regimen. -Per chart review, recent PFTs showing FEV1/FVC of < 0.7 and FEV1 < 50. -Continue Duonebs q4h while awake -Start -Hold home Xopenex HFA due to reported tachycardia. -Maintain oxygen saturation between 88-92% 4. Possible Acute exacerbation of systolic CHF, present on admission. Resolved. -Clinically patient does not appear volume overloaded and increasing dyspnea multifactorial due to poorly controlled COPD, deconditioning and increased abdominal distention secondary to hepatomegaly. -Discontinue IV lasix and resume home dosing of PO lasix, 20mg daily. -Continue 5. Hepatic steatosis, present on admission. Ongoing -Likely secondary to obesity, history of alcohol abuse and hypertriglyceridemia. -Abd US showing Hepatomegaly, with prominently diffusely fatty infiltration. -Liver enzymes wnl -Repeat CMP 6. History of Left Atrial Appendage Thrombus, present on admission. -Warfarin held on admission due to hematochezia. -No signs/symptoms of bleeding -Will resume warfarin, per pharmacy and monitor INR. (INR subtherapeutic at 1.97 ) 7. History of Obstructive sleep apnea, present on admission. Ongoing -Patient reports self-discontinuation of CPAP recently out of frustration with settings and maintenance. -Goal O2 sats 88-92% 8. Obesity with BMI 37.2, present on admission. Ongoing. -Patient reports a 10lb weight gain associated with increased abdominal distention and bloating in the last couple of weeks. -Counseled patient regarding the importance of weight loss and lifestyle modification. 9. Chronic hypertension, present on admission. Ongoing -Continue home losartan, 10. Chronic hyperlipidemia, present on admission. Ongoing -Continue home dosing statin 11. Chronic BPH, present on admission. Ongoing -Continue home doxazosin PRN: Acetaminophen-fever/headache/mild/moderate pain Antiemetics, as needed Bowel regimen, as needed. Disposition: Patient will likely discharge home in 1-2 days when his heart rate is better controlled on oral medications and his INR is therapeutic. Pain Evaluation: Adequate Pain Control VTE Prophylaxis: SCDs VTE Mechanical Devices: Intermittant Pneumatic CD Resuscitation Status: CPR: Attempt Resuscitation Attending Statement The patient was seen and examined together with Dr. Weinberg on 01/08/2017 and I agree with the history, exam and plan as outlined in the note above. . Kim Weinberg DO January 08, 2017 10:54 Chas Morillo MD January 08, 2017 16:52
--- NOTE | 2017-01-08 15:03 | PCM.CONPHA ---
Subjective Date of Service: January 08, 2017 Hematochezia Reason for Pharmacy Consult: Anticoagulation Management Objective Vital Signs Date Time Temp Pulse Resp B/P Pulse Ox O2 Delivery O2 Flow Rate FiO2 01/08/17 13:42 36.7 73 22 120/71 95 Room Air 01/08/17 11:43 50 22 93 Room Air 01/08/17 09:13 77 01/08/17 08:00 36.6 86 22 124/77 94 Room Air 01/08/17 07:31 68 18 96 Room Air 01/08/17 02:55 36.5 68 20 120/80 96 Room Air 01/07/17 22:35 87 01/07/17 22:29 36.4 24 151/72 96 Room Air 01/07/17 22:13 96 20 153/96 95 01/07/17 21:22 101 21 139/86 94 Room Air 01/07/17 21:10 100 18 124/67 98 Room Air 01/07/17 21:06 100 20 98 01/07/17 19:51 36.4 122 16 142/115 99 Room Air Weight (Kilograms): 114.400 Height (Feet): 5 Height (Inches): 9.00 Test 01/07/17 19:48 01/07/17 19:57 01/08/17 03:50 01/08/17 14:00 Urine Color Yellow (YELLOW) Urine Appearance Hazy (CLEAR,HAZY) Urine pH 5.5 (5.0-8.0) Urine Specific [place] 1.025 (1.003-1.035) Urine Protein 30mg/dL (NEG,TRACE) Urine Glucose (UA) Negativemg/dL (NEGATIVE) Urine Ketones Negativemg/dL (NEGATIVE) Urine Occult Blood Trace (NEGATIVE) Urine Nitrite Negative (NEGATIVE) Urine Bilirubin Negative (NEGATIVE) Urine Urobilinogen Normalmg/dL (NORMAL) Urine Leukocyte Esterase Negative (NEGATIVE) Urine RBC 0-2/hpf (0-2) Urine WBC 0-5/hpf (0-5) Urine Epithelial Cells Occasional/hpf (NONE-MOD) Urine Crystals Oxalic acid crystals (NONE Urine Bacteria Few/hpf (NONE-FEW) Urine Hyaline Casts None/lpf (NONE) Urine Granular Casts None seen (NONE SEEN) Urine Waxy Casts None seen (NONE SEEN) Urine Red Blood Cell Casts None seen (NONE SEEN) Urine White Blood Cell Casts None seen (NONE SEEN) Urine Mucus Present (None Seen) Urine Trichomonas None seen (NONE SEEN) Urine Yeast None (NONE SEEN) Urinalysis Comment Urine Culture Reflexed Not indicated Total Bilirubin 0.5mg/dL (0.0-1.2) Aspartate Amino Transf (AST/SGOT) 27U/L (0-50) Alanine Aminotransferase (ALT/SGPT) 29U/L (0-44) Alkaline Phosphatase 72U/L (25-160) Troponin T < 0.010ug/L (0.0-0.011) Pro-B-Type Natriuretic Peptide 2393pg/mL (0-376) Total Protein 7.4g/dL (6.4-8.4) Albumin 4.3g/dL (3.4-5.0) Hold Weiss Top Tube Received (Received) White Blood Count 7.8th/mm3 (3.8-10.1) Red Blood Count 4.15mil/mm3 (4.40-5.80) Hemoglobin 12.4g/dL (13.8-17.2) Hematocrit 38.9% (41.0-50.0) Mean Corpuscular Volume 93.7fL (81-100) Mean Corpuscular Hemoglobin 29.9pg (27.0-35.0) Mean Corpuscular Hemoglobin Concent 31.9% (32.0-37.0) Red Cell Distribution Width 14.2% (12.3-15.4) Platelet Count 221bil/L (150-400) Neutrophils (%) (Auto) 70.1% (40-74) Lymphocytes (%) (Auto) 14.5% (14-46) Monocytes (%) (Auto) 12.8% (4-12) Eosinophils (%) (Auto) 1.8% (0-5) Basophils (%) (Auto) 0.4% (0-3) Sodium Level 139mEq/L (134-144) Potassium Level 4.2mEq/L (3.5-5.2) Chloride Level 98mEq/L (97-108) Carbon Dioxide Level 24mmol/L (18-29) Blood Urea Nitrogen 26mg/dL (8-27) Creatinine 1.10mg/dL (0.76-1.27) Estimat Glomerular Filtration Rate 71mL/min (>59) Glucose Level 122mg/dL (60-99) Calcium Level 8.9mg/dL (8.5-10.1) Magnesium Level 2.0mg/dL (1.6-2.6) Triglycerides Level 210mg/dL (0-149) Cholesterol Level 129mg/dL (100-199) LDL Cholesterol, Calculated 50.000mg/dL (0-99) VLDL Cholesterol 42.000mg/dL HDL Cholesterol 37mg/dL (>39) Cholesterol/HDL Ratio 3.49 (0.0-4.4) Thyroid Stimulating Hormone (TSH) 4.080uIU/mL (0.450-4.500) Prothrombin Time 15.4sec (8.1-12.5) Prothromb Time International Ratio 1.43ratio Assessment/Plan Assessment/Plan Warfarin management per pharmacy Indication: atrial fibrillation INR goal: 2-3 Home warfarin dose: 7.5 mg on Th, 5 mg on all other days of the week Pertinent information: - Warfarin was held last night while ruling out GI bleed. Per Dr. Weinberg, will restart warfarin as hematochezia has been attributed to hemorrhoids. - Patient is not therapeutically anticoagulated at this time. At the time the patient was discussed with Dr. Weinberg, INR was close to therapeutic range and deemed to be appropriate. However, new INR is available. Date INR 1.43 INR change Warf Dose XXXXX INR is subtherapeutic and trending down. Will order bolus dose tonight. Give warfarin 7.5 mg PO one time this evening at 1700. has been paged with newest INR. Pharmacy to continue to monitor and dose warfarin daily. Thank you, Donna Lara January 08, 2017 15:03
--- NOTE | 2017-01-08 16:23 | CONS ---
[address] [address] CONSULTATION REPORT PATIENT: BELEN TURNER : 1950 MR#: [id number] ADMIT: 01/07/2017 JOB ID: [id number] DATE OF SERVICE: 01/08/2017 REQUESTED BY: Chas Morillo MD REASON FOR EVALUATION: Atrial fibrillation. I saw and examined the patient. Please see Klaus Marinelli's notes for details. IMPRESSION: 1. Atrial fibrillation with uncontrolled ventricular response. 2. No evidence of congestive heart failure. 3. Severe obstructive sleep apnea, untreated. 4. History of cerebrovascular accident in 2002 with residual right arm weakness. 5. History of 45 pack year smoking, quit in September 2015. 6. Hypertension. 7. Hyperlipidemia. 8. Severe obesity. 9. Alcohol abuse. PLAN: I will start the patient on metoprolol succinate 50 mg twice daily for rate control of his atrial fibrillation. Warfarin is currently on hold due to GI bleed. The patient should have obstructive sleep apnea treated. I discussed with the patient regarding gastric bypass surgery. He is interested in pursuing this.
[2017-01-08] MEDS ORDERED: Warfarin 5 MG, Warfarin 2.5 MG PO ONE ×2 (17:00)
[2017-01-08] MEDS ORDERED: Diltiazem Inj 125 MG in 0.9% Sodium Chloride 100 ML, Pharmacy To Mix 1 EA IV SCH (18:20)
--- NOTE | 2017-01-08 18:36 | NUR ---
HR/SOB This afternoon, MD order to D/C dilt gtt and start PO. Pt HR was in 40-50s at that time, so but gtt on hold and waited for HR to come up to the 60s, then gave PO dilt. HR kept climbing up and started sustaining in the 130-140s. Notified MD who restarted gtt until PO kicked in. Titrated gtt from 5 up to 15 per protocol. Pt denies any chest pain or dizziness at this time. Pt continues to have SOB with exertion as well as some at rest. Started to desat to the high 80s while moving around and also sitting at the edge of the bed. Currently on 1L NC with goal of sats 88-92% per MD. Frequent rouding continues. Pt able to get up SBA to BSC as well as use urinal indendently.
[2017-01-08] MEDS ORDERED: MeTOProlol XL 50 mg ER24 Tablet PO ONE (20:30)
[2017-01-08] MEDS: Arformoterol 15 mCg/2 mL Inhalation Solution NEB SCH (21:00)
[2017-01-08] MEDS: Ipratropium 0.02% 0.5 mg/2.5 mL Inhalation Solution NEB SCH (21:00)
--- NOTE | 2017-01-08 23:38 | NUR ---
Handoff Report Patient stable and no distress noted, report given to Coby PALACIOS, all questions answered, patient resting in bed, Cardizem gtt infusing at 15mg/hr, HR 90-110's.
[2017-01-09] VITALS (7 sets, daily range): BP systolic 120–132; BP diastolic 59–86; PULSE 45–97; RESP 18–20; O2SAT 92–96
[2017-01-09] MEDS: Sodium Chloride LOK Flush 10 mL Syringe IVFLUSH SCH ×2 (00:30→09:16)
[2017-01-09 03:38] LABS: BASOPHILS % (AUTO) 0.4 % (0-3); EOSINOPHILS % (AUTO) 1.5 % (0-5); MONOCYTES % (AUTO) 9.9 % (4-12); Mean Corpuscular Volume 94.4 fL (81-100); NEUTROPHILS % (AUTO) 74.2 % (40-74); Platelet Count 206 bil/L (150-400)
[2017-01-09 03:49] LABS: INR 1.37 ratio
[2017-01-09] MEDS: Ipratropium 0.02% 0.5 mg/2.5 mL Inhalation Solution NEB SCH ×2 (04:24→11:01)
--- NOTE | 2017-01-09 04:46 | NUR ---
HR Patient's HR has been trending down over night. Cardizem titrated to 5mg/h. Plan to d/c gtt if remains stable around time of morning po dose of cardizem due. Restless while trying to sleep. Intermittent apnea while sleeping. Will continue to monitor closely. Addendum: 01/09/17 at 0557 by MICHELLE BAIG RN Patient had a brief moment of bradycardia this morning. Cardizem stopped at this time. Will continue to monitor.
--- NOTE | 2017-01-09 05:51 | DRSVH ---
[facility] [address] [place] [address] Echocardiogram Report Name: BELEN TURNER RStudy Perico e: 01/08/2017 Height: 69 in Hospital Exam Location: [facility] Weight: 252 lb Gender: Male BSA: 2.3 m2 : 1950 Age: 66 yrs BP: 120/71 mmHg Reason For Study: SOB, CHF, AFIB RVR Ordering Physician: Performed By: Nithin Hoyos Referring Physician: BRIA MARLEY Interpretation Summary 1. Normal left ventricular size with upper limits of normal wall thickness with an estimated EF of 45 to 50% 2. Mildly dilated right ventricle with low normal systolic function. 3. No evidence for significant valvular pathology 4. The IVC was not well visualized Compared to the previous study (report and images reviewed), no significant change. In this study, the IVC was not well visualized. Procedure: A two-dimensional transthoracic echocardiogram with color flow and Doppler was performed. The study quality was technically difficult. A contrast injection of Definity was performed to improve assessment of LV function. Comparison is made with the echocardiogram of 07/04/16. The patient was in atrial fibrillation with heart rates between 84-110 bpm during the exam. Left Ventricle: The left ventricle is normal in size. Left ventricular wall thickness is at the upper limits of normal. The ejection fraction is estimated to be 45-50%. Right Ventricle: The right ventricle is mildly dilated. Right ventricular systolic function is borderline reduced. Atria: The left atrium is moderately dilated. The right atrium is severely dilated. There is no Doppler evidence for an atrial septal defect. Mitral Valve: The mitral valve leaflets appear mildly thickened, but open well. There is trace mitral regurgitation. Aortic Valve: The aortic valve is slightly calcified. Appears trileaflet but not optimally visualized. There is no hemodynamically significant valvular aortic stenosis. Variability of heart rate makes accurate doppler assessment of the valve challenging. No aortic regurgitation is present. Tricuspid Valve: The tricuspid valve is not well visualized. There is mild tricuspid regurgitation. Pulmonary artery pressures cannot be estimated because of the lack of a measurable TR jet velocity. Pulmonic Valve: The pulmonic valve is not well visualized. Great Vessels: The aortic root is normal size. The dimensions of the ascending aorta are normal. The inferior vena cava was not well visualized. Pericardium/ Pleura There is no pericardial effusion. There is no pleural effusion. MMode/2D Measurements & Calculations LVIDd: 5.5 cm RA long axis LVOT diam LVIDs: 3.9 cm LA A4 area: 25.9 cm FS: 29.2 % LA length (vol): 6.3 cmRA area AoV Opening EPSS: 1.0 cm IVSd: 1.0 cm : 34.5 cm Ao root diam LVPWd: 1.0 cm RA vol : 162.ml asc Aorta RA Diam: 3.2 cm : 71.5 mm2 LV zuluaga. diameter/BSA LV sys. diameter/BSA TAPSE: 1.5 cm (cm/m^2): 2.4 (cm/m^2): 1.7 Doppler Measurements & Calculations Ao V2 max MV E max daryl Med Peak E' Daryl TR max daryl : 148.5 cm/sec : 97.5 cm/sec : 215.3 cm/sec Ao max PG E/E' med: 15.1 TR max PG : 9.5 mmHg Lat Peak E' Daryl : 18.5 mmHg Ao mean PG E/E' lat: 12.5 LVOT Max Daryl E/e' average: 13.8 : 77.7 cm/sec COOPER(I,D): 1.8 cm sev ratio Ao V2 mean LV V1 max PG COOPER indexed to BSA : 109.2 cm/sec (cm^2/m^2): 0.79 Ao V2 VTI: 21.6 cmLV V1 VTI : 12.2 cm COOPER(V,D): 1.7 cm2 Reading Physician:04:40 PM
[2017-01-09] MEDS: Arformoterol 15 mCg/2 mL Inhalation Solution NEB SCH (07:58)
[2017-01-09] MEDS ORDERED: Diltiazem CD 180 mg ER24 Capsule PO SCH (08:30)
[2017-01-09] MEDS ORDERED: MeTOProlol XL 50 mg ER24 Tablet PO SCH (08:55)
[2017-01-09] MEDS ORDERED: ARFO15VI2 NEB (09:09)
[2017-01-09] MEDS ORDERED: METO-272 PO (09:09)
[2017-01-09] MEDS ORDERED: IPRA0.2S51 NEB (09:09)
[2017-01-09] MEDS ORDERED: LOV120 SUBQ (09:09)
[2017-01-09] MEDS ORDERED: PANT40TA2 PO (09:19)
--- NOTE | 2017-01-09 09:45 | PCM.DIMED ---
Kim Weinberg 01/09/17 0901: Discharge Instructions Date of Service January 09, 2017 Dates of Hospitalization Jan 07, 2017 at 21:44 Discharge Diagnosis Discharge Diagnosis 1. Hematochezia, acute. 2. Atrial fibrillation w/Rapid ventricular response, chronic. 3. COPD, chronic. 4. Hepatic steatosis 5. Concern for acute on chronic CHF 6. History of Left Atrial Appendage Thrombus. 7. History of Obstructive sleep apnea 8. Obesity with BMI 37.2 9. Chronic hypertension 10. Chronic hyperlipidemia 11. Chronic BPH Diet Low fat, Low Sodium, Heart Healthy Activity No restrictions Call your provider Fever or Chills, Shortness of breath, Bleeding, Chest pain, Weakness (unilateral ) Patient Instructions -Some changes were made to your medications during this hospital stay and these changes are listed above. -Follow up with your primary care physician within one week to review hospital stay, Gastroenterology follow up and medications. -It is important that you discuss your sleep apnea with your primary care physician for potential sleep study and restarting of CPAP -You will need to have your INR checked in the next 2-3 days, continue taking Warfarin and Lovenox injections until your INR check. -Seek urgent care if you are having: bloody or dark tarry stool, feel lightheaded or dizzy, have increased difficulty breathing despite nebulizer treatments or develop chest pain. Stop the following medications: -Diltiazem 30mg -Levalbuterol nebulizer -Ranitidine -Cimetidine Start the following medications: -Arformoterol tartrate (Brovana) 15mcg nebulizer twice daily -Ipratropium bromide 0.5mg nebulizer every 6 hours as needed for shortness of breath -Metoprolol succinate 50mg by mouth twice daily -Pantoprazole (Protonix) 40mg by mouth once daily -Enoxaparin (Lovenox) inject 120mg twice daily Follow-up plan INR check in 2-3 days PCP within 1 week. Follow-up Provider: Paul Fitzpatrick MD Follow-up with PCP in: 1 week Juanjo Borges DO 01/09/17 1514: Discharge Instructions Patient Instructions Please follow up with your heart doctor, Dr. Gonzales, in about 2 weeks time to discuss a procedure called "cardioversion." Please follow up with the GI specialist in clinic tomorrow. This appointment will be made for you. Please discuss your concerns about holding Warfarin at that visit. Chas Morillo MD 01/15/17 0836: Discharge Instructions Attending's Statement The patient was seen and examined together with Drs. Weinberg and Puneet on 01/09/2017 and I agree with the history, exam and plan as outlined in the note above. . Kim Weinberg DO January 09, 2017 09:01 Juanjo Borges DO January 09, 2017 15:14 Chas Morillo MD January 15, 2017 08:36
--- NOTE | 2017-01-09 10:18 | PCM.PHAPRO ---
Progress Date of Service: January 09, 2017 Hematochezia Warfarin management per pharmacy Indication: atrial fibrillation INR goal: 2-3 Home warfarin dose: 7.5 mg on , 5 mg on all other days of the week Pertinent information: - Warfarin was held while ruling out GI bleed. Per Dr. Weinberg, will restart warfarin as hematochezia has been attributed to hemorrhoids. - Patient is therapeutically anticoagulated with Lovenox 120 mg BID (weight based dose; pt weighs 112 kg). INR is subtherapeutic and trending down likely due to held dose. Will order another bolus dose tonight. Give warfarin 7.5 mg PO one time this evening at 1700. Serial INRs have been ordered. Pharmacy to continue to monitor and dose warfarin daily. Thank you, Donna Lara January 09, 2017 10:18
--- NOTE | 2017-01-09 10:21 | NUR ---
Social Work Note: Continued Discharge Planning Data& Assessment: Per MD pt is getting closer to being medically ready for discharge. Per MD request, [facility] faxed precriptions to pt preferred pharmacy: [facility] in [place]. Pt will likely be discharged on Lovanox. [facility] confirmed they have the amount of syringes pt will require. Pharmacy to contact SW to confirm there are not any issues with coverage or having the medications in stock. Pt is otherwise independent in his room at this time. SW to continue to follow for any other discharge planning needs. Plan: Anticipated discharge home via POV when medically ready. SW to continue to follow for any other discharge planning needs. TACOS Cullen Addendum: 01/09/17 at 1341 by TEDDY ELAINE [facility] pharmacy informed SW that the cost for the Lovanox would be $5.00. Pt nebulizer treatment medication Broana and Ipratropium will need to be ordered and will be in stock at the pharmacy tomorrow 01/10/2017. Pt and MD notified. SW to continue to follow. TACOS Cullen
--- NOTE | 2017-01-09 13:27 | PCM.PNMED ---
Subjective Date of Service January 09, 2017 Subjective Patient is a 66 year old male w/ a history of chronic a-fib on warfarin, CHF w/ LVEF 45%, history of left atrial appendage thrombus, CVA, and COPD who presented to the ED with the complaint of bloody bowel movements for the past two days. Admitted for further evaluation and management of hematochezia and possible COPD exacerbation. Hospital day #2. Per nursing, intermittent apnea noted throughout the night and heart rate trended down on diltiazem drip. This morning patient reports poor sleep due to restlessness. He otherwise states that he is doing well, his breathing has improved with nebulizer treatments and he is without complaint. Denies chest pain, shortness of breath, abdominal pain, nausea, vomiting, bloody or dark stools. Exam Vital Signs Vital Sign - Last Date Time Temp Pulse Resp B/P Pulse Ox O2 Delivery O2 Flow Rate FiO2 01/09/17 04:24 88 20 92 Room Air 01/09/17 03:27 36.6 122/59 01/08/17 19:39 1.00 Intake and Output 01/08/17 01/08/17 01/09/17 Cumulative From/Thru 15:00 23:00 07:00 01/07/17 19:51 - 01/09/17 06:15 Intake Total 1176 ml 1200 ml 3188 ml Output Total 1600 ml 1250 ml 5300 ml Balance -424 ml -50 ml -2112 ml Intake Oral 1176 ml 1200 ml 3076 ml IV Total 112 ml Output Urine Total 1600 ml 1250 ml 5300 ml # Voids 4 4 # Bowel Movements 1 3 Exam General: Well developed, obese male sitting upright in bed, in no acute distress. HEENT: Normocephalic, atraumatic. PERRLA, no scleral icterus, oropharynx pink with moist mucosa. Cardiovascular: Irregularly irregular, no murmurs, rubs, or gallops appreciated , pulses intact and equal bilaterally Pulmonary: Clear to auscultation bilaterally with no crackles, wheezes, or rhonchi. Normal respiratory effort with no use of accessory muscles. Abdomen: Bowel tones present. Soft, obese, mildly distended, nontender with noted hepatomegaly Extremities: No clubbing, cyanosis, edema Neurological: Grossly intact, no focal weakness, Alert and Oriented x3. Psychiatric: Normal mood and affect, appropriately interactive. IVs and Medications Medications Reviewed: Medications were reviewed in detail Lab and Diagnostics Laboratory Tests Test 01/08/17 14:00 01/09/17 03:20 Prothrombin Time 15.4sec (8.1-12.5) 14.8sec (8.1-12.5) Prothromb Time International Ratio 1.43ratio 1.37ratio White Blood Count 7.4th/mm3 (3.8-10.1) Red Blood Count 4.14mil/mm3 (4.40-5.80) Hemoglobin 12.4g/dL (13.8-17.2) Hematocrit 39.1% (41.0-50.0) Mean Corpuscular Volume 94.4fL (81-100) Mean Corpuscular Hemoglobin 30.0pg (27.0-35.0) Mean Corpuscular Hemoglobin Concent 31.7% (32.0-37.0) Red Cell Distribution Width 14.4% (12.3-15.4) Platelet Count 206bil/L (150-400) Neutrophils (%) (Auto) 74.2% (40-74) Lymphocytes (%) (Auto) 13.9% (14-46) Monocytes (%) (Auto) 9.9% (4-12) Eosinophils (%) (Auto) 1.5% (0-5) Basophils (%) (Auto) 0.4% (0-3) Sodium Level 139mEq/L (134-144) Potassium Level 4.0mEq/L (3.5-5.2) Chloride Level 101mEq/L (97-108) Carbon Dioxide Level 22mmol/L (18-29) Blood Urea Nitrogen 23mg/dL (8-27) Creatinine 0.94mg/dL (0.76-1.27) Estimat Glomerular Filtration Rate 85mL/min (>59) Glucose Level 132mg/dL (60-99) Calcium Level 8.9mg/dL (8.5-10.1) Total Bilirubin 0.5mg/dL (0.0-1.2) Aspartate Amino Transf (AST/SGOT) 28U/L (0-50) Alanine Aminotransferase (ALT/SGPT) 25U/L (0-44) Alkaline Phosphatase 67U/L (25-160) Total Protein 7.2g/dL (6.4-8.4) Albumin 3.9g/dL (3.4-5.0) Result Diagram: 01/09/17 0320 01/09/17 0320 X-Rays, CTs and MRIs No new imaging overnight. PROCEDURE: X-RAY CHEST ONE VIEW, PORTABLE ([id number]) IMPRESSION: Cardiomegaly with increased pulmonary vascularity suggestive of mild edema. Dictated by: Harmony Dorado M.D. on 01/07/2017 at 20:08 Approved by: Harmony Dorado M.D. on 01/07/2017 at 20:08 12-lead ECG EKG: Afib/Aflutter with rate of 114, multiple PVCs, with QTc of 518. Additional Diagnostics PROCEDURE: US ABDOMEN IMPRESSION: Hepatomegaly, with prominently diffusely fatty infiltrated liver parenchyma. Splenomegaly, but without associated ascites or evidence of varices. As noted above 2 the quality of visualization of significant portions of the abdomen and retroperitoneum was diminished by overlying bowel gas, and the hyperechoic hepatic echotexture. Depending on the clinical status followup by CT scanning may become necessary. Dictated by: Shelton Jimenez M.D. on 01/08/2017 at 9:22 Approved by: Shelton Jimenez M.D. on 01/08/2017 at 9:25 Assessment & Plan 66-year-old male with a history of Afib chronically anticoagulated on warfarin, CHF w/ LVEF 45%, history of left atrial appendage thrombus, CVA and COPD admitted for further evaluation and management of hematochezia, possible COPD exacerbation and concern for CHF exacerbation. Hospital day #2. 1. Hematochezia, acute. present on admission. Improved. -Likely secondary to hemorrhoids. -H/H stable and no signs/symptoms of active bleeding -GI consulted, recommend outpatient follow up. Appreciate their time and expertise. -Continue Protonix 40mg PO daily 2. Atrial fibrillation w/Rapid ventricular response, chronic. present on admission. Ongoing -Warfarin resumed on 01/08/17 w/dosing per pharmacy, no signs/symptoms of active bleeding. -Stop diltiazem and start metoprolol succinate 50mg PO bid, per cardiology recommendation -INR subtherapeutic, continue lovenox and warfarin. -Continue telemetry. 3. COPD, chronic. present on admission. Improved -Per chart review, recent PFTs showing FEV1/FVC of < 0.7 and FEV1 < 50. -Continue brovana, atrovent nebulizers -Maintain oxygen saturation between 88-92% 4. Hepatic steatosis, present on admission. Ongoing -Likely secondary to obesity, history of alcohol abuse and hypertriglyceridemia. -Abd US showing Hepatomegaly, with prominently diffusely fatty infiltration. -Liver enzymes wnl -Repeat CMP 5. Possible Acute exacerbation of systolic CHF, present on admission. Resolved. -Clinically patient does not appear in acute exacerbation. -Continue PO lasix, 20mg daily. 6. History of Left Atrial Appendage Thrombus, present on admission. -No signs/symptoms of bleeding -Continue warfarin, per pharmacy and monitor INR. 7. History of Obstructive sleep apnea, present on admission. Ongoing -Patient reports self-discontinuation of CPAP recently out of frustration with settings and maintenance. -Goal O2 sats 88-92% -Recommend follow up with PCP at discharge 8. Obesity with BMI 37.2, present on admission. Ongoing. -Patient reports a 10lb weight gain associated with increased abdominal distention and bloating in the last couple of weeks. -Counseled patient regarding the importance of weight loss and lifestyle modification. 9. Chronic hypertension, present on admission. Ongoing -Continue home losartan, 10. Chronic hyperlipidemia, present on admission. Ongoing -Continue home dosing statin 11. Chronic BPH, present on admission. Ongoing -Continue home doxazosin PRN: Acetaminophen-fever/headache/mild/moderate pain Antiemetics, as needed Bowel regimen, as needed. Disposition: Patient will likely discharge home in 1-2 days when his heart rate is better controlled on oral medications and his INR is therapeutic. Pain Evaluation: Adequate Pain Control VTE Prophylaxis: Theraputic Anticoag with Warfarin, SCDs Resuscitation Status: CPR: Attempt Resuscitation Kim Weinberg DO January 09, 2017 07:56 Chas Morillo MD January 15, 2017 08:36
--- NOTE | 2017-01-09 15:40 | PROG NOTE ---
[address] [address] CARDIOLOGY INPATIENT PROGRESS NOTE PATIENT: BELEN TURNER : 1950 MR#: [id number] ADMIT: 01/07/2017 JOB ID: [id number] DATE: 01/09/2017 SUBJECTIVE: The patient tells me today that he is doing much better. He tells me that his dyspnea on exertion improved . He does not have any chest discomfort, denies having palpitations, and does not have symptoms of nocturnal pulmonary congestion. He tells me he had a bowel movement a couple of times and his hematochezia improved substantially. He had a slight small bleeding on the paper when he wiped up and just small amount on the stool. He is voiding normally. PHYSICAL EXAMINATION: Vital signs: Temperature 36.6, pulse 88, respiratory rate 18, blood pressure 120/82 mmHg. Pulse oximetry 96% saturation on room air. General: Overweight male, lying in the bed comfortably. Speaking in full sentences. No active distress. HEENT: Mucous membranes moist, sclerae anicteric. Neck: Supple. No thyromegaly. Respiratory: Decreased breathing sounds bilaterally. No wheezing. No crackles. Cardiac: Irregularly irregular rhythm, heart sounds are distant. No murmur appreciated, JVP not elevated. Abdomen: Nontender with palpation. Extremities: No lower extremity edema. Skin: Warm, no rash. Neuro: Alert and oriented x3. No gross abnormalities noted. EKG: on telemetry Today he is actually in atrial flutter with heart rate in 70s, 80s, 90s. Periodically with physical activity heart rate goes in the 120s up to 130bpm but he is asymptomatic. Periodically he has PVCs. LABORATORIES: A white blood cell is 7.4, red blood cells 4.14, hemoglobin 12.4, hematocrit 39.1. Platelets 14.4. Sodium 139, potassium 4, chloride 101, carbon dioxide 22, BUN 23, creatinine 0.94, calcium 8.9, total bilirubin 0.5, AST 28, ALT 25, alkaline phosphatase 67, total protein 7.2, LV 3.9. INR today is 1.37. 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 could not tolerate CPAP machine) who on January 07, 2017 was admitted with hematochezia which improved and was having increased shortness of breath with atrial fibrillation with RVR and currently is in atrial flutter and is asymptomatic. 1. Atrial fibrillation with rapid ventricular response. The patient actually currently is in atrial flutter with heart rate in 70s, 80s, 90s. Periodically with physical activity heart rate goes in the 120s He is on metoprolol succinate 50 mg b.i.d. Today in the morning actually his heart rate dropped to 40 beats per minute. He is feeling well and is asymptomatic. I spoke to on-call engine oiler, Dr. Delatorre who advised that the patient can be discharged on Current dose of metoprolol succinate 50 mg b.i.d, and after four weeks of therapeutic INR, he can be cardioverted as an outpatient. It should be noted that the patient's hematochezia improved and GI specialist saw the patient in the hospital. It was noted that the patient's hematochezia was likely related to his history of hemorrhoids because he was having rectal pain and bright red blood and also it was noted that the patient already scheduled for appointment for endoscopy as an outpatient. It also was noted that the plan was for him to see Dr. Bennett as an outpatient for already scheduled colonoscopy as an outpatient. It should be noted that the patient already is started on warfarin with bridge on Lovenox. This was started by hospitalist team. 2. Cardiomyopathy, etiology multifactorial, likely alcohol, hypertension and tachycardia mediated with ejection fraction of 45%. He improved clinically. His dyspnea on exertion improved. He does not have symptoms of nocturnal pulmonary congestion. He does not have signs of volume overload on exam. 3. History of obstructive sleep apnea, not treated. He could not tolerate CPAP machine in the past. It is very crucial for him to treat for obstructive sleep apnea and to see a sleep specialist, which would help his atrial fibrillation/atrial flutter. 4. History of thrombus in the left atrial appendage per [facility] from October 15, 2015. 5. Hypertension, currently controlled. 6. Hyperlipidemia. 7. Chronic obstructive pulmonary disease. He has been saturating well on room air. 8. Alcohol abuse. I explained to the patient the importance of quitting drinking. I explained to the patient also that alcohol affects his cardiomyopathy and dysrhythmia and generally his health. He is willing to quit. RECOMMENDATIONS: I discussed the case with on-call engine oiler, Dr. Murali Delatorre who recommended that the patient can be discharged today from our cardiac standpoint on metoprolol succinate 50 mg b.i.d. We do not recommend increase the dose of it because of episodes of bradycardia with heart rate 40 bpm today. Once he is discharged, and he has GI work up done as outpatient and once he has therapeutic INR for four weeks, he could be cardioverted as outpatient Outpatient follow up with his engine oiler, Dr. Gonzales, in two weeks to reassess his condition. The patient can he can continue with his outpatient medications which include Furosemide 20 mg p.o. daily and Losartan 50 mg b.i.d. The Case and Management was discussed and coordinated with engine oiler Dr. Quiroz. CATIA
--- NOTE | 2017-01-09 16:15 | NUR ---
Social Work Note: Discharge Data& Assessment: EMR reviewed. Per pt is medically ready to discharge. Toni Greene is a 66 year old male admitted on 01/07/2017 for AFIB with RVR and GI Bleed. Per pt is medically improved and ready for discharge. Pt prescriptions have already been faxed to pt preferred pharmacy as mentioned in previous notes. MD, RN, pt and pt all updated and agreeable to plan. Pt is ambulating at baseline. Pt and pt deny any other needs. No other discharge needs identified. All updated and agreeable to plan. Plan: Per pt is medically improved and ready to discharge home via POV. Pt and pt deny any other needs. No other discharge needs identified. All updated and agreeable to plan. TACOS Cullen
--- NOTE | 2017-01-09 16:21 | NUR ---
Discharge Pt discharged home today at 16:00. Pt off floor via ambulation with all belongings in the company of his family to private vehicle. Pt was given prescriptions and follow up instructions for four appointments that were made. Pt was given extensive education on administering lovenox injections, heart healthy diet, anticoagulation agents, and new meds. All questions answered and pt voiced understanding.
[2017-01-09] MEDS ORDERED: Warfarin 2.5 MG, Warfarin 5 MG PO ONE ×2 (17:00)
--- NOTE | 2017-01-09 21:10 | PCM.DC.MED ---
Discharge Summary Date of Service January 09, 2017 Dates of Hospitalization Date of Hospital Admission Jan 07, 2017 at 21:44 Date of Discharge: January 09, 2017 Providers: Admitting Physician: Cris Doe DO Primary Care Physician: Paul Fitzpatrick MD Attending Physician: Cris Doe DO Diagnosis at Time of Discharge Diagnosis at Time of Discharge 1. Hematochezia, acute. 2. Atrial fibrillation w/Rapid ventricular response, chronic. 3. COPD, chronic. 4. Hepatic steatosis 5. Concern for acute on chronic CHF 6. History of Left Atrial Appendage Thrombus. 7. History of Obstructive sleep apnea 8. Obesity with BMI 37.2 9. Chronic hypertension 10. Chronic hyperlipidemia 11. Chronic BPH Procedures XRay, CTs & MRIs No new imaging overnight. PROCEDURE: X-RAY CHEST ONE VIEW, PORTABLE ([id number]) IMPRESSION: Cardiomegaly with increased pulmonary vascularity suggestive of mild edema. Dictated by: Harmony Dorado M.D. on 01/07/2017 at 20:08 Approved by: Harmony Dorado M.D. on 01/07/2017 at 20:08 ECG 12 Lead EKG: Afib/Aflutter with rate of 114, multiple PVCs, with QTc of 518. Other Diagnostics PROCEDURE: US ABDOMEN IMPRESSION: Hepatomegaly, with prominently diffusely fatty infiltrated liver parenchyma. Splenomegaly, but without associated ascites or evidence of varices. As noted above 2 the quality of visualization of significant portions of the abdomen and retroperitoneum was diminished by overlying bowel gas, and the hyperechoic hepatic echotexture. Depending on the clinical status followup by CT scanning may become necessary. Dictated by: Shelton Jimenez M.D. on 01/08/2017 at 9:22 Approved by: Shelton Jimenez M.D. on 01/08/2017 at 9:25 Brief History Per admission history and physical on 01/07/2017. Stephen Sierra DO 66-year-old gentleman with history of chronic A. fib on warfarin, CHF, COPD, history of CVA, fatty liver disease and past history of GI bleed and hemorrhoids who presented to the ED due to 2 days of moderate hematochezia. Patient states that a few days ago he began having increased bowel movements that he believes for diarrhea on and abuse unable to definitively confirm that. Patient states he was wiping excessively and 4 longer duration of time and developed hematochezia, initially showing up on the tissue paper but then began to fill the bowl. He was drinking large amounts of alcohol when this all began. He states that he now has rectal pain but without abdominal pain. Patient does state that he had mild nausea but no vomiting that seemed to be transient along with mild epigastric pain. Patient states that his abdomen is also expanding over the last month or so, denies ever undergoing paracentesis; ultrasound on presentation revealed fatty liver disease. Patient is on warfarin due to his A. fib which is currently being worked up by cardiology as his pulse was 122 on admit. Today the patient states that his bloody stool has resolved and he is having more performed stool, along with cessation of rectal abdominal pain. Patient's H&H has been stable since admission as well as negative liver enzymes. Today patient does describe recent symptoms of orthopnea is consistent with a CHF, and is undergoing cardiac evaluation. Warfarin was held on admission, although he was subtherapeutic. Patient denies chest pain, dizziness, lightheadedness, ongoing hematochezia/melena, nausea, vomiting, shortness of breath or abdominal pain. Patient states that recently he was diagnosed with a GI bleed does not outpatient with scheduled colonoscopy within the next week to 2. Review of [facility] Records indicates referral at the beginning of last month but no clinic note. Also patient was treated for hep C in the past but last clinic note from 2010 indicated that he would have to follow up in 6 months but does not appear to have happened. Current hep C status I guess is unknown at this point. Hospital Course 66-year-old male with a history of Afib chronically anticoagulated on warfarin, CHF w/ LVEF 45%, history of left atrial appendage thrombus, CVA and COPD admitted for further evaluation and management of hematochezia, possible COPD exacerbation and concern for CHF exacerbation. 1. Hematochezia, acute. present on admission. Improved. -Likely secondary to hemorrhoids. -H/H remained stable and no signs/symptoms of active bleeding -GI consulted and recommend outpatient follow up. -Discharged on Protonix 40mg PO daily -Follow up with PCP within one week to discuss GI follow up. 2. Atrial fibrillation w/Rapid ventricular response, chronic. present on admission. Improved -Warfarin resumed on 01/08/17 w/dosing per pharmacy, no signs/symptoms of active bleeding. -Patient was started on diltiazem drip for rate control and switched to oral metoprolol succinate 50mg bid prior to discharge, per Cardiology recommendation. -INR was subtherapeutic and patient started subq lovenox. -Continue Lovenox and warfarin following discharge until INR therapeutic. -Patient to have INR check in 2 days and follow up with PCP within one week. 3. COPD, chronic. present on admission. Improved -Per chart review, recent PFTs showing FEV1/FVC of < 0.7 and FEV1 < 50. -Stopped levalbuterol due to history of tachycardia with use. -Started patient on brovana and atrovent nebulizers -Oxygen saturation was maintained between 88-92% 4. Hepatic steatosis, present on admission. Ongoing -Likely secondary to obesity, history of alcohol abuse and hypertriglyceridemia. -Abd US showing Hepatomegaly, with prominently diffusely fatty infiltration. -Liver enzymes were within normal limits -Followed CMP -Counseled patient regarding lifestyle modification. -Recommend close outpatient follow up. 5. Possible Acute exacerbation of systolic CHF, present on admission. Resolved. -Clinically patient did not appear in acute exacerbation. -Continued home lasix and monitored clinically. 6. History of Left Atrial Appendage Thrombus, present on admission. -Patient with no signs/symptoms of bleeding -Continued warfarin, per pharmacy and monitored INR. -Lovenox, follow up and INR monitoring as above. 7. History of Obstructive sleep apnea, present on admission. Ongoing -Patient reports self-discontinuation of CPAP recently out of frustration with settings and maintenance. -Recommend follow up with PCP at discharge 8. Obesity with BMI 37.2, present on admission. Ongoing. -Patient reports a 10lb weight gain associated with increased abdominal distention and bloating in the last couple of weeks. -Counseled patient regarding the importance of weight loss and lifestyle modification. 9. Chronic hypertension, present on admission. Ongoing -Continued home losartan, 10. Chronic hyperlipidemia, present on admission. Ongoing -Continued home dosing statin 11. Chronic BPH, present on admission. Ongoing -Continued home doxazosin Exam Vital Signs (Last) Date Time Temp Pulse Resp B/P Pulse Ox O2 Delivery O2 Flow Rate FiO2 01/09/17 11:52 36.6 88 18 120/82 96 Room Air 01/08/17 19:39 1.00 Exam General: Well developed, obese male sitting upright in bed, in no acute distress. HEENT: Normocephalic, atraumatic. PERRLA, no scleral icterus, oropharynx pink with moist mucosa. Cardiovascular: Irregularly irregular, no murmurs, rubs, or gallops appreciated , pulses intact and equal bilaterally Pulmonary: Clear to auscultation bilaterally with no crackles, wheezes, or rhonchi. Normal respiratory effort with no use of accessory muscles. Abdomen: Bowel tones present. Soft, obese, mildly distended, nontender with noted hepatomegaly Extremities: No clubbing, cyanosis, edema Neurological: Grossly intact, no focal weakness, Alert and Oriented x3. Psychiatric: Normal mood and affect, appropriately interactive. Test 01/07/17 19:48 01/07/17 19:57 01/08/17 03:50 01/09/17 03:20 Urine Color Yellow (YELLOW) Urine Appearance Hazy (CLEAR,HAZY) Urine pH 5.5 (5.0-8.0) Urine Specific [place] 1.025 (1.003-1.035) Urine Protein 30mg/dL (NEG,TRACE) Urine Glucose (UA) Negativemg/dL (NEGATIVE) Urine Ketones Negativemg/dL (NEGATIVE) Urine Occult Blood Trace (NEGATIVE) Urine Nitrite Negative (NEGATIVE) Urine Bilirubin Negative (NEGATIVE) Urine Urobilinogen Normalmg/dL (NORMAL) Urine Leukocyte Esterase Negative (NEGATIVE) Urine RBC 0-2/hpf (0-2) Urine WBC 0-5/hpf (0-5) Urine Epithelial Cells Occasional/hpf (NONE-MOD) Urine Crystals Oxalic acid crystals (NONE Urine Bacteria Few/hpf (NONE-FEW) Urine Hyaline Casts None/lpf (NONE) Urine Granular Casts None seen (NONE SEEN) Urine Waxy Casts None seen (NONE SEEN) Urine Red Blood Cell Casts None seen (NONE SEEN) Urine White Blood Cell Casts None seen (NONE SEEN) Urine Mucus Present (None Seen) Urine Trichomonas None seen (NONE SEEN) Urine Yeast None (NONE SEEN) Urinalysis Comment Urine Culture Reflexed Not indicated Troponin T < 0.010ug/L (0.0-0.011) Pro-B-Type Natriuretic Peptide 2393pg/mL (0-376) Hold Weiss Top Tube Received (Received) Magnesium Level 2.0mg/dL (1.6-2.6) Triglycerides Level 210mg/dL (0-149) Cholesterol Level 129mg/dL (100-199) LDL Cholesterol, Calculated 50.000mg/dL (0-99) VLDL Cholesterol 42.000mg/dL HDL Cholesterol 37mg/dL (>39) Cholesterol/HDL Ratio 3.49 (0.0-4.4) Thyroid Stimulating Hormone (TSH) 4.080uIU/mL (0.450-4.500) White Blood Count 7.4th/mm3 (3.8-10.1) Red Blood Count 4.14mil/mm3 (4.40-5.80) Hemoglobin 12.4g/dL (13.8-17.2) Hematocrit 39.1% (41.0-50.0) Mean Corpuscular Volume 94.4fL (81-100) Mean Corpuscular Hemoglobin 30.0pg (27.0-35.0) Mean Corpuscular Hemoglobin Concent 31.7% (32.0-37.0) Red Cell Distribution Width 14.4% (12.3-15.4) Platelet Count 206bil/L (150-400) Neutrophils (%) (Auto) 74.2% (40-74) Lymphocytes (%) (Auto) 13.9% (14-46) Monocytes (%) (Auto) 9.9% (4-12) Eosinophils (%) (Auto) 1.5% (0-5) Basophils (%) (Auto) 0.4% (0-3) Prothrombin Time 14.8sec (8.1-12.5) Prothromb Time International Ratio 1.37ratio Sodium Level 139mEq/L (134-144) Potassium Level 4.0mEq/L (3.5-5.2) Chloride Level 101mEq/L (97-108) Carbon Dioxide Level 22mmol/L (18-29) Blood Urea Nitrogen 23mg/dL (8-27) Creatinine 0.94mg/dL (0.76-1.27) Estimat Glomerular Filtration Rate 85mL/min (>59) Glucose Level 132mg/dL (60-99) Calcium Level 8.9mg/dL (8.5-10.1) Total Bilirubin 0.5mg/dL (0.0-1.2) Aspartate Amino Transf (AST/SGOT) 28U/L (0-50) Alanine Aminotransferase (ALT/SGPT) 25U/L (0-44) Alkaline Phosphatase 67U/L (25-160) Total Protein 7.2g/dL (6.4-8.4) Albumin 3.9g/dL (3.4-5.0) Discharge Medications Discharge Medications Arformoterol Tartrate (Brovana) 15 Mcg/2 Ml Vial.neb 15 MCG NEB BID Prescribed by: PAVAN FLEMING DO Aspirin (Aspirin) 81 Mg Tablet 81 MG PO HS (Reported) Atorvastatin Calcium (Atorvastatin Calcium) 40 Mg Tablet 40 MG PO HS (Reported) Citalopram (Citalopram) 40 Mg Tablet 40 MG PO DAILY (Reported) Doxazosin (Cardura) 1 Mg Tablet 1 MG PO HS (Reported) Enoxaparin (Lovenox) 120 Mg/0.8 Ml Syringe 120 MG SUBQ BID Prescribed by: PAVAN FLEMING DO Furosemide (Furosemide) 20 Mg Tab 20 MG PO DAILY Prescribed by: ABRIL BACH MD Losartan Potassium (Cozaar) 50 Mg Tablet 100 MG PO DAILY (Reported) Metoprolol Succinate ER (Metoprolol Succinate ER) 50 Mg Tab.er.24h 50 MG PO BID Prescribed by: PAVAN FLEMING DO Pantoprazole DR (Protonix) 40 Mg Tablet 40 MG PO DAILY Prescribed by: PAVAN FLEMING DO Warfarin Sodium (Jantoven) 5 Mg Tablet 5 MG PO Daily except for Dior (Reported) Warfarin Sodium (Jantoven) 5 Mg Tablet 7.5 MG PO Q (Reported) As needed Atenolol (Atenolol) 25 Mg Tablet 25 MG PO DAILY PRN PRN Fast heart rate ( Reported) Ipratropium [place] (Ipratropium [place] Inhalant Solution) 0.2 Mg/1 Ml Solution 0.5 MG NEB Q6 PRN PRN For Shortness of Breath Prescribed by: PAVAN FLEMING DO Followup Plan Follow-up plan INR check in 2-3 days PCP within 1 week. Discharge Diet: Low fat, Low Sodium, Heart Healthy Discharge Activity: No restrictions Patient Instructions Please follow up with your heart doctor, Dr. Gonzales, in about 2 weeks time to discuss a procedure called "cardioversion." Please follow up with the GI specialist in clinic tomorrow. This appointment will be made for you. Please discuss your concerns about holding Warfarin at that visit. Follow-up Provider: Paul Fitzpatrick MD Follow-up with PCP in: 1 week Time spent Greater than 30 minutes was spent in preparation of discharge with greater than 50% of that time dedicated to patient counseling and coordination of care. . Attending Statement The patient was seen and examined together with Dr. Fleming on 01/09/2017 and I agree with the history, exam and plan as outlined in the note above. . copies to: Paul Fitzpatrick MD, Courtney M DO January 09, 2017 21:10 Chas Morillo MD January 15, 2017 08:37
== END 2017-01-09 16:24 | disposition home or self-care (01) | DRG 377 ==
LOC: SED 19:47 → PCC 21:44
PROVIDERS: ADMIT Internal Medicine; ATTEND Internal Medicine
DX: K92.1 Melena (principal); I50.21 Acute systolic (congestive) heart failure; I42.5 Other restrictive cardiomyopathy; I48.92 Unspecified atrial flutter; I50.22 Chronic systolic (congestive) heart failure; I48.2 Chronic atrial fibrillation; Z79.82 Long term (current) use of aspirin; Z79.01 Long term (current) use of anticoagulants; Z86.73 Personal history of transient ischemic attack (TIA), and cerebral infarction without residual deficits; Z87.891 Personal history of nicotine dependence; J44.9 Chronic obstructive pulmonary disease, unspecified; I10 Essential (primary) hypertension; N40.0 Benign prostatic hyperplasia without lower urinary tract symptoms; G47.33 Obstructive sleep apnea (adult) (pediatric); I25.2 Old myocardial infarction; E66.09 Other obesity due to excess calories; K70.0 Alcoholic fatty liver; E78.5 Hyperlipidemia, unspecified; F10.10 Alcohol abuse, uncomplicated; R79.1 Abnormal coagulation profile; K64.9 Unspecified hemorrhoids; Z68.37 Body mass index [BMI] 37.0-37.9, adult

== ENCOUNTER 2017-02-12 14:29 | Emergency (ER) | payer MEDICARE ==
[~2017-02-12] VITALS: Ht 175.3 cm; Wt 113.6 kg
[~2017-02-12 14:29] MED LIST changes: +ARFO15VI2 NEB; +ATEN25TA PO; -DILT30TA30 PO; -GARL1CAP7 PO; +IPRA0.2S51 NEB; -LEVA15HF5 IH; +LOV120 SUBQ; +METO-272 PO; -MULT-1018 PO; -OMEG300C3 PO; -OXYM30SP18 NS; +PANT40TA2 PO; -WARF5TAB7 PO; +WARF5TAB9 PO; -WARF7.5T4 PO
[2017-02-12 14:35] VITALS: BP 184/124; PULSE 115; RESP 26; O2SAT 96
--- NOTE | 2017-02-12 14:45 | ED.REPORT ---
HPI-Dyspnea / Wheezing Date of Service Feb 12, 2017 ED Provider: Ba Crane MD Patient is a 66 year old male with a history of CHF, COPD, TIA, hypertension and ME who presents to the ED complaining of shortness of breath onset 2 days ago. Associated symptoms include cough, rhinorrhea, dyspnea on exertion, leg swelling and generalized weakness. He denies fever, vomiting or diarrhea. Nursing Notes Stated Complaint: PROBLEMS BREATHING Chief Complaint: Respiratory Complaints Nursing Notes Reviewed: Yes Allergies: Coded Allergies: No Known Allergies (Unverified , 10/09/15) Scheduled Arformoterol Tartrate (Brovana) 15 Mcg/2 Ml Vial.neb 15 MCG NEB BID Aspirin (Aspirin) 81 Mg Tablet 81 MG PO HS Atorvastatin Calcium (Atorvastatin Calcium) 40 Mg Tablet 40 MG PO HS Citalopram (Citalopram) 40 Mg Tablet 40 MG PO DAILY Doxazosin (Cardura) 1 Mg Tablet 1 MG PO HS Enoxaparin (Lovenox) 120 Mg/0.8 Ml Syringe 120 MG SUBQ BID Furosemide (Furosemide) 20 Mg Tab 20 MG PO DAILY Losartan Potassium (Cozaar) 50 Mg Tablet 100 MG PO DAILY Metoprolol Succinate ER (Metoprolol Succinate ER) 50 Mg Tab.er.24h 50 MG PO BID Pantoprazole DR (Protonix) 40 Mg Tablet 40 MG PO DAILY Warfarin Sodium (Jantoven) 5 Mg Tablet 5 MG PO Daily except for Sun Warfarin Sodium (Jantoven) 5 Mg Tablet 7.5 MG PO Q Scheduled PRN Atenolol (Atenolol) 25 Mg Tablet 25 MG PO DAILY PRN PRN Fast heart rate Ipratropium [place] (Ipratropium [place] Inhalant Solution) 0.2 Mg/1 Ml Solution 0.5 MG NEB Q6 PRN PRN For Shortness of Breath General Time Seen by MD: 14:43 Chief Complaint Shortness of breath Hx Obtained From: Patient Arrived By: Walk-in Sudden in Onset?: Yes Onset Occurred: 3 days ago Symptom Duration: Since onset Severity: Current: Mild Associated with: Reports: Cough, Denies: Vomiting Recent Healthcare: Recent doctor visit, Recent hospitalization Similar Sx Previous: Yes Past Medical History Past Medical History Notes: Cardiology: [place] Admit October 2015 shortness of breath, diagnosed with atrial fibrillation, stress test suggestive prior ME, cardiac catheterization was planned but deferred initially secondary to thrombus and atrial appendage, the second time deferred due to elevated INR, and then deferred a third time following communication issue regarding scheduling, and then reportedly lost to follow-up Past Medical History COPD Hx pneumonia Bronchitis CVA 2003 Hypertension Gastric ulcer Smoking History Former Smoker Social History Alcohol Use: "Social" Drug Use: Denies drug use Other Social History: Local resident Ambulatory Status Independent Review of Systems Constitutional: Reports: Malaise, Weakness - generalized, Denies: Fever Respiratory: Reports: Dyspnea on exertion, Non-productive cough, Shortness of breath Cardiovascular: Denies: Chest pain Musculoskeletal: Reports: Extremity swelling, Denies: Back pain Allergy / Immune: Reports: Rhinorrhea Complete sys rev & neg: except as marked. GI: Denies: Diarrhea, Nausea, Vomiting Physical Exam Initial Vital Signs Vital Signs (First) Date Time Temp Pulse Resp B/P Pulse Ox O2 Delivery O2 Flow Rate FiO2 02/12/17 14:35 35.8 115 26 184/124 96 Room Air Initial VS: Reviewed General/Constitutional: Awake, Alert Neck: Atraumatic, Supple, Full range of motion RESPIRATORY: decreased breath sounds in all dial no discrete wheezing rhonchorous breath sounds throughout Cardiovascular: Regular rhythm, No murmurs Heart Rate / Rhythm: Positive: Tachycardia Abdomen: Atraumatic, Soft, Non-tender Lower Extremity / Pelvis / MS: Atraumatic 1+ bilateral lower extremity edema Skin: Atraumatic, Color NL, No rash, Warm, Dry Neurologic: Oriented X3, Speech NL, No motor deficits, No sensory deficits Head / Eyes: Atraumatic, Normocephalic, PERRL, EOMI Psychiatric: Affect NL, Mood NL Interpretation & Diagnostics Lab Results Interpretation Result Diagram: 02/12/17 1450 02/12/17 1450 Test 02/12/17 14:50 White Blood Count 7.5th/mm3 (3.8-10.1) Red Blood Count 4.31mil/mm3 (4.40-5.80) Hemoglobin 12.1g/dL (13.8-17.2) Hematocrit 39.9% (41.0-50.0) Mean Corpuscular Volume 92.6fL (81-100) Mean Corpuscular Hemoglobin 28.1pg (27.0-35.0) Mean Corpuscular Hemoglobin Concent 30.3% (32.0-37.0) Red Cell Distribution Width 15.2% (12.3-15.4) Platelet Count 239bil/L (150-400) Neutrophils (%) (Auto) 77.0% (40-74) Lymphocytes (%) (Auto) 11.2% (14-46) Monocytes (%) (Auto) 10.5% (4-12) Eosinophils (%) (Auto) 0.7% (0-5) Basophils (%) (Auto) 0.3% (0-3) Prothrombin Time 38.8sec (8.1-12.5) Prothromb Time International Ratio 3.53ratio Sodium Level 139mEq/L (134-144) Potassium Level 4.5mEq/L (3.5-5.2) Chloride Level 99mEq/L (97-108) Carbon Dioxide Level 26mmol/L (18-29) Blood Urea Nitrogen 27mg/dL (8-27) Creatinine 1.01mg/dL (0.76-1.27) Estimat Glomerular Filtration Rate 79mL/min (>59) Glucose Level 130mg/dL (60-99) Lactic Acid Level 1.6mmol/L (0.4-2.0) Calcium Level 9.7mg/dL (8.5-10.1) Total Bilirubin 0.9mg/dL (0.0-1.2) Aspartate Amino Transf (AST/SGOT) 44U/L (0-50) Alanine Aminotransferase (ALT/SGPT) 27U/L (0-44) Alkaline Phosphatase 102U/L (25-160) Troponin T < 0.010ug/L (0.0-0.011) Pro-B-Type Natriuretic Peptide 4651pg/mL (0-376) Total Protein 7.4g/dL (6.4-8.4) Albumin 3.8g/dL (3.4-5.0) Hold Weiss Top Tube Received (Received) ECG Interpretation ECG Interpretation: sinus tachycardia, rate 118 Time: 14:54 Interpreted by: ED physician X-Ray Chest Interpretation Chest Xray Interpretation: IMPRESSION: Borderline cardiomegaly without overt heart failure. No pneumonia. Dictated by: Haile Win M.D. on 02/12/2017 at 13:57 Approved by: Haile Win M.D. on 02/12/2017 at 13:59 View: Portable, 1 view Interpretation / Wet Read by: Interpret - Radiologist Re-Eval/Medical Decision Re-Evaluation/Progress : Time of Eval: 16:48 Re-Evaluation/Progress Note: Discussed results and plan for discharge. The patient understands and agrees to the plan for discharge. All questions were addressed. Counseled Regarding: Diagnosis, Lab results, Need for follow-up, When/why to return to ED Discharge & Departure Impression: Primary Impression: CHF exacerbation Congestive heart failure type: unspecified congestive heart failure type Qualified Code: I50.9 - Heart failure, unspecified Disposition: Home Discharge Condition All VS Reviewed: Yes Condition: Stable Patient Instructions: Heart Failure (ED) Additional Instructions: Thank you for trusting us with your care today. Your labs were reassuring. We gave you a dose of intravenous furosemide (Lasix) here in the emergency department. Tomorrow I recommended double dose Lasix for the next 3 days. If you take supplemental potassium I recommend you double that dose as well. Call tomorrow morning for an appointment later this week. Return to the emergency department if you develop any new or worsening symptoms including chest pain, shortness of breath, weakness, numbness or tingling. Referrals: Paul Fitzpatrick MD (PCP) Attending Statement Portions of this note were transcribed by Martine Rao. I, Dr. Crane personally performed the history, physical exam and medical decision-making; I reviewed and confirmed the accuracy of the information in the transcribed note. Signed by:Joanna Deleon, 02/12/17 and 1500 copies to: Paul Fitzpatrick MD, Kirk H MD Feb 12, 2017 14:45 Nette Rao Feb 12, 2017 15:01
[2017-02-12 14:59] LABS: BASOPHILS % (AUTO) 0.3 % (0-3); MONOCYTES % (AUTO) 10.5 % (4-12)
[2017-02-12] MEDS ORDERED: MethylprednisoLONE Sodium Succinate 62.5 mg/mL 2 mL Inj IVPUSH ONE (15:00)
[2017-02-12] MEDS ORDERED: Albuterol-Ipratropium 3 mL Inhalation Solution NEB ONE (15:00)
[2017-02-12 15:01] LABS: EOSINOPHILS % (AUTO) 0.7 % (0-5); Mean Corpuscular Hemoglobin 28.1 pg (27.0-35.0); Mean Corpuscular Volume 92.6 fL (81-100); Platelet Count 239 bil/L (150-400)
--- NOTE | 2017-02-12 15:01 | DRSVH ---
PROCEDURE: X-RAY CHEST ONE VIEW, PORTABLE ([id number]) INDICATIONS: CHEST PAIN TECHNIQUE: One view of the chest was acquired. COMPARISON: [facility], CR, XR CHEST 1VW (PORTABLE), 01/07/2017, 19:45. [facility], CR, XR CHEST 1VW (PORTABLE), 07/03/2016, 11:13. FINDINGS: Surgical changes and devices: None. Lungs and pleura: The aeration of the lungs is similar to prior study. Hazy appearance to the right lung is unchanged. There is linear scarring/atelectasis within the left lateral midlung. No lobar c onsolidation, effusion, or pneumothorax is evident. Mediastinum: Mediastinal contours appear normal. Heart size is borderline enlarged Bones and chest wall: No suspicious bony lesions. Overlying soft tissues appear unremarkable. IMPRESSION: Borderline cardiomegaly without overt heart failure. No pneumonia. Dictated by: Haile Win M.D. on 02/12/2017 at 13:57 Approved by: Haile Win M.D. on 02/12/2017 at 13:59
[2017-02-12 15:30] LABS: TROPONIN T < 0.010 ug/L (0.0-0.011)
[2017-02-12 15:34] VITALS: PULSE 108; RESP 16; O2SAT 95
[2017-02-12 15:55] LABS: INR 3.53 ratio
[2017-02-12 16:16] VITALS: BP 148/106; PULSE 118; RESP 20; O2SAT 97
[2017-02-12] MEDS ORDERED: Furosemide 10 mg/mL 4 mL Inj IVPUSH ONE (16:45)
[2017-02-12 18:09] VITALS: BP 158/104; PULSE 110; RESP 20; O2SAT 94
[2017-02-12 18:35] LABS: APPEARANCE,URINE CLEAR (CLEAR,HAZY); COLOR,URINE YELLOW (YELLOW); PH,URINE 6.5 (5.0-8.0)
[2017-02-12 18:36] LABS: OCCULT BLOOD,URINE TRACE (NEGATIVE)
[2017-02-12 18:37] LABS: UROBILINOGEN,URINE NORMAL (NORMAL)
== END 2017-02-12 18:11 | disposition home or self-care (01) ==
LOC: SED 14:29
DX: I50.9 Heart failure, unspecified (principal); M79.89 Other specified soft tissue disorders; R53.1 Weakness; J34.89 Other specified disorders of nose and nasal sinuses; I10 Essential (primary) hypertension; J44.9 Chronic obstructive pulmonary disease, unspecified; I25.2 Old myocardial infarction; Z79.82 Long term (current) use of aspirin; Z86.73 Personal history of transient ischemic attack (TIA), and cerebral infarction without residual deficits; Z87.01 Personal history of pneumonia (recurrent); Z87.891 Personal history of nicotine dependence; Z79.01 Long term (current) use of anticoagulants
CPT/HCPCS: 36415; 71010; 80053; 81000; 83605; 83880; 84484; 85025; 85610; 87086; 93005; 94664; 94799; 96374; 96375; 99285; J1940; J2930; J7620

== ENCOUNTER 2017-02-16 08:19 | Emergency (ER) | payer MEDICARE ==
[~2017-02-16] VITALS: Ht 175.3 cm; Wt 118.6 kg
--- NOTE | 2017-02-16 08:23 | ED.REPORT ---
HPI-Dyspnea / Wheezing Date of Service Feb 16, 2017 ED Provider: Dr. Sahu Pt is a 66 year old male with a hx of CHF, HTN on Warfarin presenting to the ED complaining of SOB onset 1 week ago, worsened yesterday after his nebulizer stopped working. Associated symptoms include LE swelling a few months ago, weight gain of about 30 lbs over a couple months, abdominal tightness, insomnia (for a month). Denies chest pain, diaphoresis, chills, fever, or any other symptoms at this time. These symptoms feel similar to his usual SOB episodes, which are usually resolved with the nebulizer. Pt scheduled to see Dr. Gonzales later today. Nursing Notes Stated Complaint: SOB Nursing Notes Reviewed: Yes ([employer], [employer] not reconciled, EMR indicates h/o warfarin use) Allergies: Coded Allergies: No Known Allergies (Unverified , 02/16/17) Scheduled Arformoterol Tartrate (Brovana) 15 Mcg/2 Ml Vial.neb 15 MCG NEB BID Aspirin (Aspirin) 81 Mg Tablet 81 MG PO HS Atorvastatin Calcium (Atorvastatin Calcium) 40 Mg Tablet 40 MG PO HS Citalopram (Citalopram) 40 Mg Tablet 40 MG PO DAILY Doxazosin (Cardura) 1 Mg Tablet 1 MG PO HS Furosemide (Furosemide) 20 Mg Tab 20 MG PO DAILY Losartan Potassium (Cozaar) 50 Mg Tablet 100 MG PO DAILY Metoprolol Succinate ER (Metoprolol Succinate ER) 50 Mg Tab.er.24h 50 MG PO BID Pantoprazole DR (Protonix) 40 Mg Tablet 40 MG PO DAILY Warfarin Sodium (Jantoven) 5 Mg Tablet 5 MG PO Daily except for Sun Warfarin Sodium (Jantoven) 5 Mg Tablet 7.5 MG PO Q Scheduled PRN Atenolol (Atenolol) 25 Mg Tablet 25 MG PO DAILY PRN PRN Fast heart rate Ipratropium [place] (Ipratropium [place] Inhalant Solution) 0.2 Mg/1 Ml Solution 0.5 MG NEB Q6 PRN PRN For Shortness of Breath General Time Seen by MD: 08:22 Chief Complaint Shortness of breath Hx Obtained From: Patient Arrived By: Walk-in Sudden in Onset?: No Onset Occurred: 1 week ago Symptom Duration: Since onset Severity: Current: No pain currently Severity: Maximum: No pain Recent Healthcare: No recent hospitalization, Recent doctor visit Similar Sx Previous: Yes Past Medical History Past Medical History Notes: Cardiology: Christian PCP: Amari ED visit 02/12/2017 for CHF and COPD exacerbation Patient missed his appointment yesterday with fluid draining and INR clinic Admitted January 07 through January 09 - hematochazia (attribunated to hemorrhoids) atrial fibrillation with RVR, COPD, acute on chronic CHF, Past Medical History CHF COPD Hx pneumonia Bronchitis CVA 2002 Hypertension Gastric ulcer h/o atrial fibrillation 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 GI: Reports: Abdominal pain (Tightness) Endocrine: Reports: Weight gain Psychiatric: Reports: Insomnia Physical Exam Initial Vital Signs Vital Signs (First) Date Time Temp Pulse Resp B/P Pulse Ox O2 Delivery O2 Flow Rate FiO2 02/16/17 08:29 36.0 99 18 147/111 97 02/16/17 08:42 Room Air Initial VS: Reviewed, Unavailable (none on chart, ordered) Head / Eyes: Atraumatic, Normocephalic, PERRL ENT: Mucous membranes moist, Conjunctiva normal, No scleral icterus Abdomen / GI: Soft, Non-tender, No guarding, No rebound, No distention Skin: Warm, Dry, No cyanosis Neurologic: Alert, Oriented, Nonfocal Psychiatric: Mood/affect normal, Behavior normal, Normal thought content General/Constitutional: Awake, Alert Respiratory / Chest: No respiratory distress Dyspnic. Diminished breath sounds and scattered wheezes. Cardiovascular: Heart rate NL, Regular rhythm, Heart sounds NL, Peripheral circulation NL Lower Extremity / Pelvis / MS: Full range of motion +1 edema Interpretation & Diagnostics Lab Results Interpretation Result Diagram: 02/16/17 0845 02/16/17 0845 Test 02/16/17 08:45 White Blood Count 7.0th/mm3 (3.8-10.1) Red Blood Count 4.39mil/mm3 (4.40-5.80) Hemoglobin 12.2g/dL (13.8-17.2) Hematocrit 40.7% (41.0-50.0) Mean Corpuscular Volume 92.7fL (81-100) Mean Corpuscular Hemoglobin 27.8pg (27.0-35.0) Mean Corpuscular Hemoglobin Concent 30.0% (32.0-37.0) Red Cell Distribution Width 15.3% (12.3-15.4) Platelet Count 235bil/L (150-400) Neutrophils (%) (Auto) 81.6% (40-74) Lymphocytes (%) (Auto) 9.2% (14-46) Monocytes (%) (Auto) 7.9% (4-12) Eosinophils (%) (Auto) 0.9% (0-5) Basophils (%) (Auto) 0.1% (0-3) Prothrombin Time 34.0sec (8.1-12.5) Prothromb Time International Ratio 3.10ratio Sodium Level 141mEq/L (134-144) Potassium Level 4.4mEq/L (3.5-5.2) Chloride Level 100mEq/L (97-108) Carbon Dioxide Level 28mmol/L (18-29) Blood Urea Nitrogen 25mg/dL (8-27) Creatinine 1.00mg/dL (0.76-1.27) Estimat Glomerular Filtration Rate 79mL/min (>59) Glucose Level 136mg/dL (60-99) Calcium Level 9.4mg/dL (8.5-10.1) Magnesium Level 2.2mg/dL (1.6-2.6) Total Bilirubin 1.1mg/dL (0.0-1.2) Aspartate Amino Transf (AST/SGOT) 38U/L (0-50) Alanine Aminotransferase (ALT/SGPT) 32U/L (0-44) Alkaline Phosphatase 95U/L (25-160) Troponin T < 0.010ug/L (0.0-0.011) Pro-B-Type Natriuretic Peptide 5076pg/mL (0-376) Total Protein 7.0g/dL (6.4-8.4) Albumin 3.6g/dL (3.4-5.0) Lab Results Interpretation: CBC normal CMP normal INR marginally supratherapeutic Troponin negative BNP elevated (this is double the value of admission at the end of December, and higher than ED presentation in February, and is strongly indicative of heart failure) ECG Interpretation ECG Interpretation: Sinus tachycardia. No acute ischemic changes. EKG unchanged from February 12, 2017. Time: 08:33 Interpreted by: ED physician Abnormal Rate: 120 (122) X-Ray Chest Interpretation Chest Xray Interpretation: IMPRESSION: 1. Subtle developing airspace disease at the right lung base is suspicious for pneumonia. Atelectasis or aspiration may also have this appearance. Please correlate clinically. 2. The size of the heart is less prominent on the current study. Dictated by: Haile Win M.D. on 02/16/2017 at 8:57 View: AP & lat Interpretation / Wet Read by: Interpret - Radiologist Re-Eval/Medical Decision Med Decision/Clinical Course This is a 66-year-old male with both COPD and CHF who is chronically anticoagulated as well presents with increasing shortness of breath. As a hospitalization for CHF the end of December, and also an ED visit number days ago. He got better, but then reports increasing shortness breath, increasing edema , increasing weight gain, and, getting things his home nebulizer has failed. He denies fevers, cough. He also has a complaint of chronic insomnia and is now worse. He denies abimbola chest pain. Exam he is tachypnea, he has some rails, he also has decreased breath sounds and maybe some bronchospasm. He has no JVD, and has mild edema of the lower extremities, and is afebrile and oxygenating. He is in a sinus rhythm. He received albuterol and Atrovent per his request, and does feel better. He also received 40 mg of IV Lasix and diuresed about a liter. He feels much improved. He has a normal troponin, no ischemic changes are evident on the EKG, INR is just mildly supratherapeutic, renal function and potassium are normal, but his BNP is up over 5000, and it was just around 2000 with the same renal function a month ago. His chest x-ray was read as questionable pneumonia, questionable Mark with clinical correlation recommended, but the patient is clinically presenting with mild CHF-I do not appreciate any evidence of a abimbola pneumonia. Patient is improved on reevaluation. He actually already has a cardiology appointment later this afternoon a few hours, so I called and discussed the case with the on-call provider and the plan is discharge, and they will follow-up to adjust medications. Additionally the patient has chronic insomnia, he is on amitriptyline at 50 mg a day but does not think that is helping very much, I have asked for him to increase it to 100 mg as he has the dose to do so-anxiety got a PCP appointment rescheduled for next week. Lastly respiratory therapy was involved in the patient's home nebulizers being replaced and they are going to a stranger. He is discharged in improved condition. Source of Hx: Old records Re-Evaluation/Progress : Time of Eval: 10:26 Patient Status: Condition improved Re-Evaluation/Progress Note: Pt takes 25 mg BID Amitriptyline. Discussed x ray results and plan for discharge. Pt understands and agrees with plan. Consultation #1: Referral / Consult Name: Verena Gonzales MD Consulted With: Cardiology Call Returned at: 13:45 Note: Pt has an appointment with Dr. Enrique at 1345. Consultation #2: Consulted With: Cardiology Call Returned at: 10:38 Front Services Agent: Will see patient, Will see in office Note: Pt will keep appointment and medication will be adjusted. Differential Diagnosis: Positive: COPD exacerbation, Congestive heart failure, Negative: Acute coronary syndrome, Cardiogenic shock, Myocardial infarction, Pneumonia, Pulmonary embolism, Respiratory failure Counseled Regarding: Diagnosis, Lab results, Need for follow-up, When/why to return to ED Discharge & Departure Impression: Primary Impression: CHF (congestive heart failure) Congestive heart failure type: unspecified congestive heart failure type Congestive heart failure chronicity: acute on chronic Qualified Code: I50.9 - Heart failure, unspecified Additional Impressions: COPD with exacerbation Anticoagulated on warfarin Disposition: Home Discharge Condition All VS Reviewed: Yes Condition: Improved Additional Instructions: 1. Your symptoms and evaluation suggests an exacerbation of congestive heart failure. 2. Go ahead and exchange her nebulizer machines have a functioning nebulizer. 3. Keep your appointment in a few hours at Dr. Sanches's office, who will further review and adjust your medications. (I have updated them on your test results today) 4. Keep your appointment with Dr. Fitzpatrick for next week. 5. For your sleep, increase the amitryptilline to 100mg at bedtime (and follow up on Sunday) for re-evaluation. Referrals: Paul Fitzpatrick MD (PCP) Verena Gonzales MD Attestation Portions of this note were transcribed by Yanni Sanders. I, Dr. Sahu personally performed the history, physical exam and medical decision-making; I reviewed and confirmed the accuracy of the information in the transcribed note. Signed by: Joanna Muro, 02/16/2017 at 1104. copies to: Verena Gonzales MD; Paul Fitzpatrick MD, Matthew F MD Feb 16, 2017 08:23 YANNI SANDERS Feb 16, 2017 08:30
[2017-02-16 08:29] VITALS: BP 147/111; PULSE 99; RESP 18; O2SAT 97
[2017-02-16] MEDS ORDERED: Albuterol 2.5 mg/3 mL Inhalation Solution NEB ONE (08:30)
[2017-02-16] MEDS ORDERED: Furosemide 10 mg/mL 4 mL Inj IVPUSH ONE (08:30)
[2017-02-16] MEDS ORDERED: Ipratropium 0.02% 0.5 mg/2.5 mL Inhalation Solution NEB ONE (08:30)
[2017-02-16 08:42] VITALS: PULSE 78; RESP 22; O2SAT 95
[2017-02-16] MEDS ORDERED: MethylprednisoLONE Sodium Succinate 62.5 mg/mL 2 mL Inj IVPUSH ONE (08:55)
[2017-02-16 09:02] VITALS: BP 145/101; PULSE 123; RESP 25; O2SAT 100
[2017-02-16 09:12] LABS: BASOPHILS % (AUTO) 0.1 % (0-3); EOSINOPHILS % (AUTO) 0.9 % (0-5); MONOCYTES % (AUTO) 7.9 % (4-12); Mean Corpuscular Hemoglobin 27.8 pg (27.0-35.0); Mean Corpuscular Volume 92.7 fL (81-100); NEUTROPHILS % (AUTO) 81.6 % (40-74); Platelet Count 235 bil/L (150-400)
[2017-02-16 09:25] LABS: INR 3.1 ratio
[2017-02-16 09:46] LABS: Magnesium 2.2 mg/dL (1.6-2.6)
--- NOTE | 2017-02-16 10:00 | DRSVH ---
PROCEDURE: X-RAY CHEST, TWO VIEWS ([id number]) INDICATIONS: SOB TECHNIQUE: 2 views of the chest were acquired. COMPARISON: [facility], CR, XR CHEST 1VW (PORTABLE), 01/07/2017, 19:45. [facility], CR, XR CHEST 1VW (PORTABLE), 02/12/2017, 14:37. FINDINGS: Surgical changes and devices: None. Lungs and pleura: Vague developing airspace disease within the right lung base is present. There is scarring/atelectasis within the left midlung. No large effusion or pneumothorax is evident. Mediastinum: Mediastinal contours are normal. Heart size is borderline prominent, but less pronounc ed on the current exam. There is aortic atherosclerosis. This appears to the right carotid artery a therosclerosis within the neck. Bones and chest wall: No suspicious bony abnormalities. Degenerative changes of the spine are noted . Soft tissues appear unremarkable. IMPRESSION: 1. Subtle developing airspace disease at the right lung base is suspicious for pneumonia. Atelectas is or aspiration may also have this appearance. Please correlate clinically. 2. The size of the heart is less prominent on the current study. Dictated by: Haile Win M.D. on 02/16/2017 at 8:57 Approved by: Haile Win M.D. on 02/16/2017 at 8:59
[2017-02-16 10:10] LABS: TROPONIN T < 0.010 ug/L (0.0-0.011)
[2017-02-16 10:17] VITALS: BP 154/118; PULSE 76; RESP 17; O2SAT 94
[2017-02-16 11:30] VITALS: BP 164/110; PULSE 70; RESP 23
== END 2017-02-16 11:15 | disposition home or self-care (01) ==
LOC: SED 08:19
DX: I50.9 Heart failure, unspecified (principal); J44.1 Chronic obstructive pulmonary disease with (acute) exacerbation; I10 Essential (primary) hypertension; G47.00 Insomnia, unspecified; E66.9 Obesity, unspecified; N40.0 Benign prostatic hyperplasia without lower urinary tract symptoms; Z86.73 Personal history of transient ischemic attack (TIA), and cerebral infarction without residual deficits; Z68.37 Body mass index [BMI] 37.0-37.9, adult; Z87.891 Personal history of nicotine dependence; Z79.01 Long term (current) use of anticoagulants; Z79.82 Long term (current) use of aspirin
CPT/HCPCS: 36415; 71020; 80053; 82948; 83735; 83880; 84484; 85025; 85610; 93005; 94640; 94664; 96374; 96375; 99285; G0463; J1940; J2930; J7613

== ENCOUNTER 2017-03-08 00:29 | Day surgery (SDC) | payer MEDICARE ==
[~2017-03-08] VITALS: Ht 175.3 cm; Wt 110.0 kg
[2017-03-08] VITALS (12 sets, daily range): BP systolic 93–131; BP diastolic 65–91; PULSE 88–126; RESP 14–20; O2SAT 92–93
[~2017-03-08 00:29] MED LIST changes: -LOV120 SUBQ
[2017-03-08] MEDS ORDERED: ARFO15VI2 IH (08:33)
[2017-03-08] MEDS ORDERED: FUR20 PO (08:34)
[2017-03-08] MEDS ORDERED: METO25TA99 PO (08:37)
[2017-03-08] MEDS ORDERED: METO-272 PO (08:37)
[2017-03-08] MEDS ORDERED: OXYM-45 NS (08:39)
--- NOTE | 2017-03-08 11:00 | NUR ---
ADMISSION NOTE MALE PT ADMITTED FOR ABLATION. DISCUSSED PLAN OF CARE WITH PT AND . SEE ADMIT AND FLOW SHEETS
[2017-03-08 11:28] LABS: BASOPHILS % (AUTO) 0.3 % (0-3); EOSINOPHILS % (AUTO) 2.9 % (0-5); MONOCYTES % (AUTO) 11.7 % (4-12); Mean Corpuscular Hemoglobin 27.4 pg (27.0-35.0); Mean Corpuscular Volume 88.8 fL (81-100); NEUTROPHILS % (AUTO) 70.1 % (40-74); Platelet Count 208 bil/L (150-400)
[2017-03-08 11:42] LABS: INR 1.67 ratio
[2017-03-08] MEDS ORDERED: WARF5TAB7 PO (12:03)
[2017-03-08] MEDS ORDERED: WARF2.5T82 PO (12:03)
[2017-03-08] MEDS ORDERED: TIOT4MIS3 IH (12:04)
[2017-03-08] MEDS ORDERED: AMT25T PO (12:04)
[2017-03-08] MEDS ORDERED: Heparin 10,000 Unit/1,000 mL NS Premix IV ONE (12:51)
[2017-03-08] MEDS ORDERED: fentaNYL-PF 50 mCg/mL 2 mL Inj ONE ×3 (13:30→15:30)
[2017-03-08] MEDS ORDERED: Heparin 1,000 Unit/mL 10 mL Inj ONE (13:56)
[2017-03-08] MEDS ORDERED: HYDROcodone-APAP 5-325 mg Tablet PO PRN (16:00)
[2017-03-08] MEDS ORDERED: Ondansetron 2 mg/mL 2 mL Inj IVPUSH PRN (16:00)
--- NOTE | 2017-03-08 19:00 | PROCED ---
[address] [address] PROCEDURE NOTE PATIENT: BELEN TURNER : 1950 MR#: [id number] ADMIT: 03/08/2017 JOB ID: [id number] DATE OF SERVICE: 03/08/2017 PREOPERATIVE DIAGNOSIS(ES): Reverse typical atrial flutter. POSTOPERATIVE DIAGNOSIS(ES): Sinus rhythm. PROCEDURES PERFORMED: 1. Comprehensive electrophysiology study with left atrial pacing recording via the coronary sinus catheter. 2. Three-dimensional electroanatomic mapping using the CARTO 3 system. 3. Atrial flutter ablation (cavotricuspid isthmus ablation); supraventricular tachycardia ablation. 4. Fluoroscopy. SURGEON: Research Investigator: Bal Ding MD, electrophysiology attending. ASSISTANTS: Ramonita Vaz and Lisa Vegas ANESTHESIA: Bolus dosing of Versed and fentanyl was utilized for an appropriate level of sedation. INDICATION: The patient is a pleasant 66-year-old man with highly symptomatic drug refractory atrial flutter. After discussion of risks and benefits of catheter based mapping and ablation, he opted to proceed. PROCEDURAL DESCRIPTION: Following informed and signed consent, the patient was taken to the EP laboratory in a fasting nonsedated state, where he was prepped in the usual sterile fashion. The right inguinal region was infiltrated with 1% lidocaine; then, using modified Seldinger technique, one 8- and two 7-Slovak sheaths were inserted into the right femoral vein under fluoroscopic guidance. A deflectable decapolar catheter was advanced to the coronary sinus with the most proximal bipoles at the os of the sinus. A 20 pole Livewire catheter was used to encircle the tricuspid anulus. The patient was in atrial flutter at the onset of the case. A J curve SmartTouch irrigated ablation catheter was brought into the field and advanced to the right atrium. It was used to create a three-dimensional electroanatomic map of the right atrium, tricuspid anulus, and cavotricuspid isthmus. Entrainment maneuvers from the 6 o'clock position along the cavotricuspid isthmus showed a post pacing interval minus tachycardia cycle length of less than 30 msec. The activation pattern on the Livewire catheter showed a clockwise atrial flutter. This was therefore labeled a reverse typical atrial flutter and cavotricuspid isthmus ablation was targeted. A linear series of ablations was performed from the ventricular to the IVC aspect of the cavotricuspid isthmus at the 6 o'clock position. This was quite laborious and ultimately during ablation the patient's flutter broke to sinus rhythm. Attaining bidirectional block was more difficult, but ultimately achieved. A 20 minute waiting period was undertaken during which bidirectional block was reconfirmed. During the course of this study we did complete a comprehensive electrophysiology study with right atrial pacing recording, right ventricular pacing recording, His bundle recording, left atrial pacing recording via the coronary sinus catheter. All catheters and sheaths were removed. Manual pressure was held for hemostasis. The patient was transferred to the [facility] for monitoring, bedrest, and discharge. COMPLICATIONS: None. ESTIMATED BLOOD LOSS: Negligible. FINDINGS: 1. Baseline rhythm is atrial flutter. Post ablation he is in sinus rhythm with an RR interval of 678 msec, [place] 204 msec, QRS 104 msec, and QT 369 msec. 2. Intracardiac intervals: AH interval 67 msec. HV 56 msec. 3. Retrograde conduction: VA Wenckebach seen at 480 msec. Atrial activation was concentric. 4. Cavotricuspid isthmus ablation as described above with bidirectional block. Specifically, transisthmus time was 170 msec in the medial to lateral direction and 163 msec in the lateral to medial direction. IMPRESSION: Successful cavotricuspid isthmus ablation for reverse typical atrial flutter. PLAN: 1. Bed rest x4 hours. 2. Continue current medication regimen including warfarin and beta blockade. 3. Follow up with me in clinic in 3-4 weeks. ATTENDING STATEMENT: Bal Ding MD, electrophysiology attending, was present for and supervised/performed all aspects of this procedure.
--- NOTE | 2017-03-08 19:11 | NUR ---
[facility] POST ABLATION ASSUMED CARE OF PT UPON RETURN FROM [facility] AT 1620. RIGHT GROIN WITH OPSITE HAS REMAINED SOFT, NON TENDER, NO BLEEDING OR HEMATOMA NOTED. MONITOR SHOWS SR 80-90s. POST ABLATION EKG WAS OBTAINED. PT IS AWAKE AND TAKING FLUIDS AND MEAL WITHOUT DIFFICULTY. BEDREST UNTIL 2019. WAS NOTIFIED OF PT'S PLANNED DISCHARGE FOR LATER AND SHE WILL BE HERE TO PICK HIM UP.
--- NOTE | 2017-03-08 20:36 | NUR ---
[facility] DISCHARGE PT COMPLETED BEDREST AND AMBULATED IN [place] AND USED THE BR. RIGHT GROIN REMAINED SOFT, NON TENDER, NO BLEEDING OR HEMATOMA NOTED. DISCHARGE INSTRUCTIONS INCLUDING MEDICATIONS, F/U, AND POST SEDATION AND ABLATION INSTRUCTIONS WERE REVIEWED AND PT VERBALIZED UNDERSTANDING. HE WAS DISCHARGED AT 2030 WITH HIS IN STABLE CONDITION.
== END 2017-03-08 23:59 | disposition home or self-care (01) ==
LOC: SOUO 00:29
PROVIDERS: ATTEND Internal Medicine Cardiovascular Disease
DX: I48.3 Typical atrial flutter (principal); J44.9 Chronic obstructive pulmonary disease, unspecified; I42.9 Cardiomyopathy, unspecified; I10 Essential (primary) hypertension; E78.5 Hyperlipidemia, unspecified; Z86.19 Personal history of other infectious and parasitic diseases; Z86.718 Personal history of other venous thrombosis and embolism; Z86.73 Personal history of transient ischemic attack (TIA), and cerebral infarction without residual deficits; Z79.01 Long term (current) use of anticoagulants; Z79.82 Long term (current) use of aspirin
CPT/HCPCS: 36415; 80048; 85025; 85610; 93005; 93613; 93653; 99152; 99153; C1730; C1731; C1732; C1893; J0131; J1644; J2250; J3010